=== PATIENT | male | born 1945 | race Caucasian/White ===

== ENCOUNTER → 2016-06-09 | Outpatient (CLI) | payer MEDICARE, BC ==
[2015-05-01 11:04] VITALS: BP 103/64
[~2016-06-09] MED LIST: ALBU2.5V5 NEB; ALPR0.5T PO; AMLO5TAB2 PO; ASPI-482 PO; CALC600T PO; CLOP75TA27 PO; CYAN100072 PO; CYCL10TA2 PO; DOCU-27 PO; FESO4TAB PO; FLUT12HF2 IH; FLUT16SP NS; FLUT1DIS3 IH; FURO20TA3 PO; GLIP5TAB10 PO; GUAI600T38 PO; HYDR25TA9 PO; IPRA4AER IH; KORE100C PO; LISI-334 PO; LISI20TA PO; LOVA40TA2 PO; MELO-156 PO; METF500T4 PO; MULT-208 PO; OMEG500C PO; OMEP40CA5 PO; OXYB15TA PO; OXYC-244 PO; Oxycodone Hcl/Acetaminophen PO; PRED20TA PO; Promethazine Hcl/Codeine PO; RANI150C PO; SOLI10TA PO; SOLI5TAB PO
--- NOTE | 2016-06-09 09:24 | RAD ---
Indication follow-up lung nodule. Noncontrast imaging through the chest was performed and is compared to an examination one year earlier. Imaging through the upper abdomen is unremarkable. Clips are noted in the gallbladder fossa. Coronary calcification is noted. The mediastinum has a normal appearance. Previously identified small nodule in the right upper lobe, image 143 series 3 appears unchanged. Similarly a nodule in the right lower lobe, image 194 is also unchanged. There is some pleural-parenchymal scarring or atelectasis in the lingula and left lower lobe with similar findings in the right middle lobe.. There is a 1 to 2 mm nodule at the left lung apex medially, image 26 also appearing similar. A definite acute parenchymal infiltrate in either lung or dominant soft tissue mass is not seen. Slight wedging of L2 is noted, unchanged. IMPRESSION: Stable, small, pulmonary nodules. A definite acute finding in the chest is not seen. Scattered new areas of volume loss are seen in the lungs likely reflecting scar and/or atelectasis. PQRS Compliance Statement: One or more of the following individualized dose reduction techniques were utilized for this examination: 1. Automated exposure control 2. Adjustment of the mA and/or kV according to patient size 3. Use of iterative reconstruction technique
== END | disposition home or self-care (01) ==
LOC: CT 08:29
PROVIDERS: ATTEND Internal Medicine Pulmonary Disease
DX: R91.1 Solitary pulmonary nodule (principal)
CPT/HCPCS: 71250

== ENCOUNTER 2016-07-22 14:30 | Inpatient (IN) | payer MEDICARE, BC ==
[2016-07-20 23:00] VITALS: BP 118/76
[~2016-07-22] VITALS: Ht 172.7 cm; Wt 77.1 kg
[2016-07-22 15:31] LABS: BASO % 0 % (0-3); EOS % 5 % (0-3); HEMOGLOBIN 10.1 g/dL (13.0-17.5); LYMPH % 14 % (24-48); MEAN CORPUSCULAR HEMOGLOBIN 31 pg (25-35); MEAN CORPUSCULAR HGB CONC 34 g/dL (31-37); MEAN CORPUSCULAR VOLUME 92 fL (79-100); MONO % 16 % (0-9); NEUT % 65 % (31-73); PLATELET COUNT 210 x10^3/uL (140-400); RED BLOOD COUNT 3.27 x10^6/uL (4.30-5.70); RED CELL DISTRIBUTION WIDTH 13.7 % (11.5-14.5)
--- NOTE | 2016-07-22 15:38 | EKG ---
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
[2016-07-22 15:54] LABS: CALCIUM 9.9 mg/dL (8.5-10.1); CREATININE 1.6 mg/dL (0.7-1.3); GFR 43.1; POTASSIUM 4.7 mmol/L (3.5-5.1)
[2016-07-22 16:00] LABS: ALBUMIN 2.8 g/dL (3.4-5.0); DIRECT BILIRUBIN 0.2 mg/dL (0.0-0.2)
[2016-07-22] MEDS ORDERED: HALOPERIDOL LACT 5 MG/ML VIAL. IM ONE (16:00)
[2016-07-22] MEDS ORDERED: NALOXONE 0.4 MG/ML VIAL. IV ONE (16:00)
[2016-07-22 16:23] LABS: TOTAL BILIRUBIN 0.7 mg/dL (0.2-1.0); TOTAL PROTEIN 6.6 g/dL (6.4-8.2)
--- NOTE | 2016-07-22 17:04 | PHYS DOC ---
Past Medical History Past Medical History: Anxiety, Arthritis, CAD, Cancer, Depression, Diabetes- Type II, GERD, High Cholesterol, Hypertension, Other Additional Past Medical Histor: prostate cancer, chronic pain Past Surgical History: Knee Replacement, Tonsillectomy, Other Additional Past Surgical Histo: back & shoulder surgery, prostatectomy, knee surgery x 2 Alcohol Use: Occasionally Drug Use: None Adult General Chief Complaint Chief Complaint: OTHER COMPLAINTS HPI HPI 70-year-old male presenting to the emergency department today after having worsening confusion over the past 2 days. He is also been agitated. He recently had bilateral knee replacement surgery and was placed in a correction facility for orthopedic rehabilitation and physical therapy. He has been on oxycodone and Ativan as needed for pain and sedation. He is oriented to person time and place however does have intermittent episodes of inappropriate conversation. His family is here with him including his . They confirmed that this is not his baseline. Onset 2 days. Location generalized. Duration intermittent. No alleviating factors present. Review of systems is negative for chest pain shortness of breath abdominal pain nausea vomiting fevers or chills. All other review of systems is negative unless otherwise noted in history of present illness. Review of Systems Review of Systems SEE ABOVE Current Medications Current Medications Current Medications Medications (Trade) Dose Ordered Sig/Oswaldo Start Time Stop Time Status Last Admin Dose Admin Acetaminophen (Tylenol) 650 mg PRN Q6HRS PRN 07/22/16 17:15 Bisacodyl (Dulcolax Supp) 10 mg PRN DAILY PRN 07/22/16 17:15 Haloperidol Lactate (Haldol) 2.5 mg 1X ONCE 07/22/16 16:00 07/22/16 16:01 DC Ibuprofen (Motrin) 400 mg PRN Q6HRS PRN 07/22/16 17:15 07/22/16 21:42 400 MG Ketorolac Tromethamine (Toradol) 15 mg PRN Q6HRS PRN 07/22/16 17:15 07/27/16 17:14 Lactulose 20 gm PRN Q12HR PRN 07/22/16 17:15 Magnesium Hydroxide (Milk Of Magnesia) 2,400 mg PRN Q12HR PRN 07/22/16 17:15 Morphine Sulfate 2 mg PRN Q2HR PRN 07/22/16 17:15 Naloxone HCl (Narcan) 0.4 mg 1X ONCE 07/22/16 16:00 07/22/16 16:01 DC 07/22/16 16:11 0.4 MG Ondansetron HCl (Zofran) 4 mg PRN Q6HRS PRN 07/22/16 17:15 Prochlorperazine (Compazine) 25 mg PRN Q12HR PRN 07/22/16 17:15 Prochlorperazine Edisylate (Compazine) 10 mg PRN Q6HRS PRN 07/22/16 17:15 Allergies Allergies Allergies Coded Allergies Type Severity Reaction Last Updated Verified No Known Drug Allergies 04/30/15 No Physical Exam Physical Exam Constitutional: Well developed, well nourished, no acute distress, non-toxic appearance. HENT: Normocephalic, atraumatic, bilateral external ears normal, oropharynx moist, no oral exudates, nose normal. [] Eyes: PERRLA, EOMI, conjunctiva normal, no discharge. Neck: Normal range of motion, no tenderness, supple, no stridor. [] Cardiovascular:Heart rate regular rhythm, no murmur [] Lungs & Thorax: Bilateral breath sounds clear to auscultation Abdomen: Bowel sounds normal, soft, no tenderness, no masses, no pulsatile masses. [] Skin: Warm, dry, no erythema, no rash. Back: No tenderness, no CVA tenderness. [] Extremities: The patient's legs show postoperative incisions which are closed clean dry and intact. Otherwise the patient is neurovascularly intact distally. Neurologic: Mental status: Awake oriented and alert x3. Intermittently the patient has inappropriate speech and conversation however is oriented to person place and time. Cranial nerves: Extraocular movements intact, eyebrows primo bilaterally smile symmetric, uvula elevation, shoulder shrug intact, tongue protrusion normal DTRs: 2+ Sensation: equal and normal in all extremities Strength: 5/5 in upper and lower extremities bilaterally No drift present. Psychologic: Affect normal, judgement normal, mood normal. [] Current Patient Data Vital Signs Vital Signs Date Time Temp Pulse Resp B/P Pulse Ox O2 Delivery O2 Flow Rate FiO2 07/22/16 16:30 98 20 104/54 96 Nasal Cannula 3 07/22/16 14:30 98.1 98.1 Lab Values Laboratory Tests Test 07/22/16 15:15 07/22/16 15:30 07/22/16 17:00 White Blood Count 7.0x10^3/uL (4.0-11.0) Red Blood Count 3.27x10^6/uL (4.30-5.70) L Hemoglobin 10.1g/dL (13.0-17.5) L Hematocrit 30.0% (39.0-53.0) L Mean Corpuscular Volume 92fL (79-100) Mean Corpuscular Hemoglobin 31pg (25-35) Mean Corpuscular Hemoglobin Concent 34g/dL (31-37) Red Cell Distribution Width 13.7% (11.5-14.5) Platelet Count 210x10^3/uL (140-400) Neutrophils (%) (Auto) 65% (31-73) Lymphocytes (%) (Auto) 14% (24-48) L Monocytes (%) (Auto) 16% (0-9) H Eosinophils (%) (Auto) 5% (0-3) H Basophils (%) (Auto) 0% (0-3) Neutrophils # (Auto) 4.6x10^3uL (1.8-7.7) Lymphocytes # (Auto) 1.0x10^3/uL (1.0-4.8) Monocytes # (Auto) 1.1x10^3/uL (0.0-1.1) Eosinophils # (Auto) 0.3x10^3/uL (0.0-0.7) Basophils # (Auto) 0.0x10^3/uL (0.0-0.2) Erythrocyte Sedimentation Rate 91 (0-15) H Sodium Level 139mmol/L (136-145) Potassium Level 4.7mmol/L (3.5-5.1) Chloride Level 102mmol/L (98-107) Carbon Dioxide Level 31mmol/L (21-32) Anion Gap 6 (6-14) Blood Urea Nitrogen 44mg/dL (8-26) H Creatinine 1.6mg/dL (0.7-1.3) H Estimated GFR (Cockcroft-Gault) 43.1 Glucose Level 237mg/dL (70-99) H Calcium Level 9.9mg/dL (8.5-10.1) Total Bilirubin 0.7mg/dL (0.2-1.0) Direct Bilirubin 0.2mg/dL (0.0-0.2) Aspartate Amino Transferase (AST) 27U/L (15-37) Alanine Aminotransferase (ALT) 41U/L (16-63) Alkaline Phosphatase 26U/L (46-116) L Troponin I Quantitative 0.031ng/mL (0.000-0.055) PQ-Hsl-J-Type Natriuretic Peptide 724pg/mL (0-124) H Total Protein 6.6g/dL (6.4-8.2) Albumin 2.8g/dL (3.4-5.0) L Lipase 78U/L (73-393) Lactic Acid Level 0.9mmol/L (0.4-2.0) Ammonia 33mcmol/L (11-34) Urine Collection Type Unknown Urine Color Yellow Urine Clarity Clear Urine pH 5.5 Urine Specific Raphine 1.015 Urine Protein Negativemg/dL (NEG-TRACE) Urine Glucose (UA) Negativemg/dL (NEG) Urine Ketones (Stick) Negativemg/dL (NEG) Urine Blood Negative (NEG) Urine Nitrite Negative (NEG) Urine Bilirubin Negative (NEG) Urine Urobilinogen Dipstick 1.0mg/dL (0.2 mg/dL) Urine Leukocyte Esterase Negative (NEG) Urine RBC Occ/HPF (0-2) Urine WBC 0/HPF (0-4) Urine Bacteria 0/HPF (0-FEW) Urine Hyaline Casts Moderate/HPF Urine Mucus Slight/LPF Laboratory Tests 07/22/16 15:15 Laboratory Tests 07/22/16 15:15 EKG EKG [] Radiology/Procedures Radiology/Procedures [] Course & Med Decision Making Course & Med Decision Making Pertinent Labs and Imaging studies reviewed. (See chart for details) [] 70-year-old male presenting to the emergency department with confusion after having bilateral knee replacement surgery at [facility]. Vital signs afebrile. Mild tachycardia. Otherwise saturating 94% on 3 L. Reports from longterm as this is the patient's baseline. Physical exam showed postoperative knee is without any acute evidence of complication. Otherwise nonfocal neuro exam. Workup shows EKG similar to previous with mild tachycardia. Small amount of Narcan given which did not improve the patient's symptoms. CBC shows mild anemia at 10. Chemistry panel shows mild hyperglycemia otherwise elevation and BUN/creatinine suggestive of dehydration. Troponin within the reference range of normal. Lactic acid normal. Ammonia normal. Given the patient's confusion postoperatively and age I felt it would benefit the patient for admission to our hospital for further evaluation workup and care. Head CT unremarkable. I placed consult for neurology and orthopedics to follow the knee replacements. I discussed the case with Dr. gustafson who agreed to follow the patient's postoperative knee issues. Dragon Disclaimer Dragon Disclaimer This electronic medical record was generated, in whole or in part, using a voice recognition dictation system. Departure Departure Impression: Primary Impression: Encephalopathy acute Additional Impressions: Confusion Delirium Disposition: ADMITTED INPATIENT Admitting Physician: Caitlin Cortez Condition: STABLE Referrals: JEFFREY VASQUEZ MD (PCP) Problem Qualifiers ALEJANDRA GUTIERREZ MD Jul 22, 2016 17:04
[2016-07-22 17:13] LABS: BILIRUBIN,URINE NEGATIVE (NEG); GLUCOSE,URINE NEGATIVE (NEG); NITRITE,URINE NEGATIVE (NEG); PH,URINE 5.5; PROTEIN,URINE NEGATIVE (NEG-TRACE)
[2016-07-22] MEDS ORDERED: PROCHLORPERAZINE 10 MG/2 ML VIAL. IV PRN (17:15)
[2016-07-22] MEDS ORDERED: MORPHINE SULFATE 2 MG/ML DISP.SYRIN. IV PRN (17:15)
[2016-07-22] MEDS ORDERED: MAGNESIUM HYDROXIDE 2,400 MG/30 ML ORAL.SUSP. PO PRN (17:15)
[2016-07-22] MEDS ORDERED: PROCHLORPERAZINE 25 MG SUPP.RECT. PR PRN (17:15)
[2016-07-22] MEDS ORDERED: KETOROLAC 15 MG/ML VIAL. IV PRN (17:15)
[2016-07-22] MEDS ORDERED: BISACODYL 10 MG SUPP.RECT PR PRN (17:15)
[2016-07-22] MEDS ORDERED: LACTULOSE 20 GM/30 ML SOLUTION. PO PRN (17:15)
[2016-07-22] MEDS ORDERED: ONDANSETRON PF 4 MG/2 ML VIAL. IV PRN (17:15)
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
[2016-07-22 17:19] LABS: RBC,URINE OCC /HPF (0-2)
[2016-07-22 17:20] LABS: BACTERIA,URINE 0 /HPF (0-FEW); WBC,URINE 0 /HPF (0-4)
[2016-07-22] MEDS ORDERED: HALOPERIDOL LACT 5 MG/ML VIAL. IVP PRN (17:30)
[2016-07-22] MEDS ORDERED: LABETALOL 20 MG/4 ML DISP.SYRIN. IVP PRN (17:30)
[2016-07-22] MEDS ORDERED: LORAZEPAM 2 MG/ML VIAL IV PRN (17:30)
--- NOTE | 2016-07-22 17:37 | RAD ---
PROCEDURE CT HEAD HISTORY CONFUSION AND COMBATIVE X4DAYS
NO HX
NO PRIORS TECHNIQUE AXIAL NONCONTRAST IMAGES THROUGH THE HEAD WERE OBTAINED COMPARISON NONE FINDINGS THE CALVARIUM APPEARS UNREMARKABLE. THE VISUALIZED PARANASAL SINUSES APPEAR NORMAL. THERE IS NO SUBDURAL OR EPIDURAL HEMATOMA. THERE IS NO MASS OR MIDLINE SHIFT. NO HEMORRHAGE IS SEEN. NO ACUTE FINDING IS APPARENT. IMPRESSION NO ACUTE FINDING APPARENT IN THE HEAD Electronically signed by: Hao Schultz (Jul 22, 2016 17:35:53)
[2016-07-22] MEDS ORDERED: IV NORMAL SALINE 1000ML BAG 1,000 ML IV SCH (18:00)
[2016-07-22 19:40] VITALS: BP 103/64
[2016-07-22] MEDS ORDERED: ENOXAPARIN 40 MG/0.4 ML DISP.SYRIN. SQ SCH (21:00)
[2016-07-22] MEDS: DOCUSATE SODIUM 100 MG CAPSULE PO SCH (21:00)
[2016-07-22] MEDS: SENNOSIDES/DOCUSATE 8.6/50MG TABLET. PO SCH (21:00)
--- NOTE | 2016-07-22 21:20 | PDOC ---
ORTHO PROGRESS NOTES Vitals Vital Signs Date Time Temp Pulse Resp B/P Pulse Ox O2 Delivery O2 Flow Rate FiO2 07/22/16 18:20 98 16 111/65 94 Nasal Cannula 3 07/22/16 14:30 98.1 98.1 Labs Laboratory Tests Test 07/22/16 15:15 07/22/16 15:30 07/22/16 17:00 White Blood Count 7.0x10^3/uL (4.0-11.0) Red Blood Count 3.27x10^6/uL (4.30-5.70) Hemoglobin 10.1g/dL (13.0-17.5) Hematocrit 30.0% (39.0-53.0) Mean Corpuscular Volume 92fL (79-100) Mean Corpuscular Hemoglobin 31pg (25-35) Mean Corpuscular Hemoglobin Concent 34g/dL (31-37) Red Cell Distribution Width 13.7% (11.5-14.5) Platelet Count 210x10^3/uL (140-400) Neutrophils (%) (Auto) 65% (31-73) Lymphocytes (%) (Auto) 14% (24-48) Monocytes (%) (Auto) 16% (0-9) Eosinophils (%) (Auto) 5% (0-3) Basophils (%) (Auto) 0% (0-3) Neutrophils # (Auto) 4.6x10^3uL (1.8-7.7) Lymphocytes # (Auto) 1.0x10^3/uL (1.0-4.8) Monocytes # (Auto) 1.1x10^3/uL (0.0-1.1) Eosinophils # (Auto) 0.3x10^3/uL (0.0-0.7) Basophils # (Auto) 0.0x10^3/uL (0.0-0.2) Erythrocyte Sedimentation Rate 91 (0-15) Sodium Level 139mmol/L (136-145) Potassium Level 4.7mmol/L (3.5-5.1) Chloride Level 102mmol/L (98-107) Carbon Dioxide Level 31mmol/L (21-32) Anion Gap 6 (6-14) Blood Urea Nitrogen 44mg/dL (8-26) Creatinine 1.6mg/dL (0.7-1.3) Estimated GFR (Cockcroft-Gault) 43.1 Glucose Level 237mg/dL (70-99) Calcium Level 9.9mg/dL (8.5-10.1) Total Bilirubin 0.7mg/dL (0.2-1.0) Direct Bilirubin 0.2mg/dL (0.0-0.2) Aspartate Amino Transf (AST/SGOT) 27U/L (15-37) Alanine Aminotransferase (ALT/SGPT) 41U/L (16-63) Alkaline Phosphatase 26U/L (46-116) Troponin I Quantitative 0.031ng/mL (0.000-0.055) RZ-Vov-G-Type Natriuretic Peptide 724pg/mL (0-124) Total Protein 6.6g/dL (6.4-8.2) Albumin 2.8g/dL (3.4-5.0) Lipase 78U/L (73-393) Lactic Acid Level 0.9mmol/L (0.4-2.0) Ammonia 33mcmol/L (11-34) Urine Collection Type Unknown Urine Color Yellow Urine Clarity Clear Urine pH 5.5 Urine Specific Tinnie 1.015 Urine Protein Negativemg/dL (NEG-TRACE) Urine Glucose (UA) Negativemg/dL (NEG) Urine Ketones (Stick) Negativemg/dL (NEG) Urine Blood Negative (NEG) Urine Nitrite Negative (NEG) Urine Bilirubin Negative (NEG) Urine Urobilinogen Dipstick 1.0mg/dL (0.2 mg/dL) Urine Leukocyte Esterase Negative (NEG) Urine RBC Occ/HPF (0-2) Urine WBC 0/HPF (0-4) Urine Bacteria 0/HPF (0-FEW) Urine Hyaline Casts Moderate/HPF Urine Mucus Slight/LPF Laboratory Tests Test 07/22/16 15:15 07/22/16 15:30 07/22/16 17:00 White Blood Count 7.0x10^3/uL (4.0-11.0) Red Blood Count 3.27x10^6/uL (4.30-5.70) Hemoglobin 10.1g/dL (13.0-17.5) Hematocrit 30.0% (39.0-53.0) Mean Corpuscular Volume 92fL (79-100) Mean Corpuscular Hemoglobin 31pg (25-35) Mean Corpuscular Hemoglobin Concent 34g/dL (31-37) Red Cell Distribution Width 13.7% (11.5-14.5) Platelet Count 210x10^3/uL (140-400) Neutrophils (%) (Auto) 65% (31-73) Lymphocytes (%) (Auto) 14% (24-48) Monocytes (%) (Auto) 16% (0-9) Eosinophils (%) (Auto) 5% (0-3) Basophils (%) (Auto) 0% (0-3) Neutrophils # (Auto) 4.6x10^3uL (1.8-7.7) Lymphocytes # (Auto) 1.0x10^3/uL (1.0-4.8) Monocytes # (Auto) 1.1x10^3/uL (0.0-1.1) Eosinophils # (Auto) 0.3x10^3/uL (0.0-0.7) Basophils # (Auto) 0.0x10^3/uL (0.0-0.2) Erythrocyte Sedimentation Rate 91 (0-15) Sodium Level 139mmol/L (136-145) Potassium Level 4.7mmol/L (3.5-5.1) Chloride Level 102mmol/L (98-107) Carbon Dioxide Level 31mmol/L (21-32) Anion Gap 6 (6-14) Blood Urea Nitrogen 44mg/dL (8-26) Creatinine 1.6mg/dL (0.7-1.3) Estimated GFR (Cockcroft-Gault) 43.1 Glucose Level 237mg/dL (70-99) Calcium Level 9.9mg/dL (8.5-10.1) Total Bilirubin 0.7mg/dL (0.2-1.0) Direct Bilirubin 0.2mg/dL (0.0-0.2) Aspartate Amino Transf (AST/SGOT) 27U/L (15-37) Alanine Aminotransferase (ALT/SGPT) 41U/L (16-63) Alkaline Phosphatase 26U/L (46-116) Troponin I Quantitative 0.031ng/mL (0.000-0.055) AQ-Vsg-X-Type Natriuretic Peptide 724pg/mL (0-124) Total Protein 6.6g/dL (6.4-8.2) Albumin 2.8g/dL (3.4-5.0) Lipase 78U/L (73-393) Lactic Acid Level 0.9mmol/L (0.4-2.0) Ammonia 33mcmol/L (11-34) Urine Collection Type Unknown Urine Color Yellow Urine Clarity Clear Urine pH 5.5 Urine Specific Tinnie 1.015 Urine Protein Negativemg/dL (NEG-TRACE) Urine Glucose (UA) Negativemg/dL (NEG) Urine Ketones (Stick) Negativemg/dL (NEG) Urine Blood Negative (NEG) Urine Nitrite Negative (NEG) Urine Bilirubin Negative (NEG) Urine Urobilinogen Dipstick 1.0mg/dL (0.2 mg/dL) Urine Leukocyte Esterase Negative (NEG) Urine RBC Occ/HPF (0-2) Urine WBC 0/HPF (0-4) Urine Bacteria 0/HPF (0-FEW) Urine Hyaline Casts Moderate/HPF Urine Mucus Slight/LPF Assessment and Plan note dictated normal appearing bilateral TKAs resume anticoag PT/OT Aquacel dressing over knees ANTONY OZUNA II, MD Jul 22, 2016 21:19
[2016-07-22] MEDS: IBUPROFEN 400 MG TABLET. PO PRN (21:42)
[2016-07-22] MEDS ORDERED: RANI150T2 PO (23:13)
[2016-07-22] MEDS ORDERED: CELE-20 PO (23:13)
[2016-07-22] MEDS ORDERED: VIT1TABL32 PO (23:13)
[2016-07-22] MEDS ORDERED: SIME180C16 PO (23:13)
[2016-07-22] MEDS ORDERED: LORA0.5T PO (23:13)
[2016-07-22] MEDS ORDERED: RIVA10TA PO (23:13)
[2016-07-22] MEDS ORDERED: POLY17PO5 PO (23:13)
[2016-07-22] MEDS ORDERED: METO10TA PO (23:13)
[2016-07-22] MEDS ORDERED: POTA20TA82 PO (23:13)
[2016-07-22] MEDS ORDERED: QUET25TA PO (23:13)
[2016-07-22] MEDS ORDERED: LORA1TAB PO (23:13)
[2016-07-22] MEDS ORDERED: LIDO700A4 TP (23:13)
[2016-07-22] MEDS ORDERED: OXYC1TAB7 PO (23:13)
[2016-07-22] MEDS ORDERED: BIFI4CAP PO (23:13)
--- NOTE | 2016-07-23 02:04 | ACF ---
Admission Forms Criteria MENTAL STATUS CHANGE Clinical Indications for Inpatient Care (Place 'X' for any and all applicable criteria): Ongoing inpatient care may be needed for ANY ONE of the following(1)(2)(3)(5)(6) : [X]I. Suspected serious etiology (eg, medical disorder, MEDICAL ASSISTANT DERMATOLOGY event) of mental status change [ ]II. Danger to self or others not manageable at lower level of care [ ]III. Grave disability (eg, inability to perform self care necessary at lower level of care) [ ]IV. Agitation or inappropriate behavior interfering with care for primary condition (eg, attempting to discontinue lines or drains prematurely, unable to cooperate with respiratory care) [ ]V. Delirium [A] [D][E] as described by ANY ONE of the following(26): [ ]a) Delirium due to alcohol or sedative [F] withdrawal [ ]b) Delirium of uncertain etiology that has not responded to appropriate empiric treatment [ ]c) Delirium that prevents performance of a life-sustaining function (eg, feeding or hydrating oneself) [ ]. General contraindications and/or Inappropriate clinical situations for Observational Care in patients with Mental Status Change, when ANY ONE of the following is required: [ ]a) Prediction of prolongation of LOS based on ANY ONE of the following may be considered as a contraindication for observational care 2, 3, 4, 5, 6, 7, 8, 9, 10, 11 [ ]i) Age > 65 yrs. [ ]ii) Patient arriving by ambulance [ ]iii) Patient with high acuity [ ]iv) Patient requiring vital sign monitoring [ ]v) Patient on IV medication [ ]b) Systolic blood pressures 180mmHg 3,12 [ ]c) Patient with altered mental status including delirium and other alteration of consciousness, (3) [ ]d) Patient whose discharge disposition will be to a [facility]cf home or rehabilitation home should not be managed in Emergency Department Observation Unit. CMS rule requires 3 days hospital stay before such placement.3,13 [ ]e) Patient with failure to thrive due to broad array of etiologies 3,16,17 [ ]f) Inability to ambulate 3,14 Extended stay beyond goal length of stay for the primary condition may be needed until ALL of the following are present(3)(5): [ ]a) Underlying medical etiology of mental status change is absent, or has been established and adequately treated [ ]b) Danger to self or others is absent or manageable at lower level of care. [ ]c) Behavior crisis management, including physical or chemical restraints, is not required or available at lower level of car [ ]d) Substance or alcohol withdrawal is absent or manageable at lower level of care. [ ]e) Behavioral symptoms (eg, agitation, somnolence, inappropriate behavior) are absent, or are manageable at lower level of care. The original [facility] content created by [facility] has been revised. The portions of the content which have been revised are identified through the use of italic text or in bold, and [facility] has neither reviewed nor approved the modified material. All other unmodified content is copyright [facility]. Please see references footnoted in the original [facility] edition 2016 Admission Criteria Met?: Yes DIOGO RONQUILLO Jul 23, 2016 02:04
[2016-07-23] MEDS: IBUPROFEN 400 MG TABLET. PO PRN ×2 (02:39→20:39)
[2016-07-23] MEDS ORDERED: HALOPERIDOL LACT 5 MG/ML VIAL. IM PRN (04:15)
[2016-07-23] MEDS ORDERED: ZIPRASIDONE IM 20 MG VIAL. IM ONE ×2 (04:30→05:00)
[2016-07-23 06:03] LABS: BASO % 0 % (0-3); EOS % 3 % (0-3); HEMATOCRIT 31.2 % (39.0-53.0); HEMOGLOBIN 10.8 g/dL (13.0-17.5); LYMPH # 0.8 x10^3/uL (1.0-4.8); LYMPH % 10 % (24-48); MEAN CORPUSCULAR HEMOGLOBIN 31 pg (25-35); MEAN CORPUSCULAR HGB CONC 35 g/dL (31-37); MEAN CORPUSCULAR VOLUME 90 fL (79-100); MONO % 15 % (0-9); NEUT % 72 % (31-73); PLATELET COUNT 243 x10^3/uL (140-400); RED BLOOD COUNT 3.47 x10^6/uL (4.30-5.70); RED CELL DISTRIBUTION WIDTH 13.7 % (11.5-14.5); WHITE BLOOD COUNT 7.7 x10^3/uL (4.0-11.0)
[2016-07-23 06:40] LABS: CALCIUM 9.6 mg/dL (8.5-10.1); CREATININE 1.2 mg/dL (0.7-1.3); POTASSIUM 4.4 mmol/L (3.5-5.1)
[2016-07-23 07:00] VITALS: BP 104/51
[2016-07-23] MEDS: NICOTINE 21MG PATCH. TD SCH (07:27)
[2016-07-23] MEDS: RIVAROXABAN 10 MG TABLET. PO SCH ×2 (09:00→14:28)
[2016-07-23] MEDS: DOCUSATE SODIUM 100 MG CAPSULE PO SCH ×2 (09:37→20:32)
[2016-07-23] MEDS: SENNOSIDES/DOCUSATE 8.6/50MG TABLET. PO SCH ×2 (09:37→20:32)
--- NOTE | 2016-07-23 10:32 | RAD ---
Examination: Single frontal view of the chest History: History of confusion, recent surgery Comparison: 08/19/2014 Findings: Low lung volumes and technique accentuates heart size and pulmonary vascularity. Mild bibasal lung airspace opacity likely atelectasis or infiltrates. Impression: Mild bibasal lung airspace opacities likely atelectasis or infiltrates. Follow-up to resolution.
[2016-07-23] MEDS: ACETAMINOPHEN 325 MG TABLET. PO PRN ×2 (10:48→16:45)
[2016-07-23 11:00] VITALS: BP 120/52
--- NOTE | 2016-07-23 11:09 | CONS ---
DATE OF CONSULTATION: 07/22/2016 REFERRING PROVIDER: Dr. Cortez. CONSULTING PROVIDER: Negrito Ozuna MD REASON FOR CONSULTATION: Bilateral total knee arthroplasty. CHIEF COMPLAINT: Knee pain. HISTORY OF PRESENT ILLNESS: The patient is a 70-year-old gentleman, who was sent over for confusion and altered mental status [facility] [place] [facility]. He underwent surgery 5 days ago, bilateral total knee arthroplasties, and has been increasingly confused the past day or so. He tells me that his knees are quite sore, but the pain is tolerable. He denies noticing any persistent drainage from his knees. The pain does go down his legs. It is worse with activity. He denies fevers. ALLERGIES: None. REVIEW OF SYSTEMS: Twelve-point review of systems negative except as per HPI. PAST MEDICAL HISTORY: Significant for: 1. Bilateral total knee arthroplasty. 2. Type 2 diabetes. 3. COPD. 4. Depression. 5. Anxiety. 6. GERD. MEDICATIONS: Reviewed. Please see MRAD. SOCIAL HISTORY: Lives with his . No smoking. PHYSICAL EXAMINATION: GENERAL: The patient is alert to person, place and year. He does not know the date. He is drowsy. HEENT: Head normocephalic, atraumatic. Extraocular muscles are intact. CARDIOVASCULAR: Regular rate and rhythm. Dorsalis pedis 2+ and symmetric. No edema at his ankles. LUNGS: Respirations are unlabored with symmetric chest rise. ABDOMEN: Soft, nondistended. EXTREMITIES: Examination of bilateral lower extremities reveals EHL and FHL are 5/5. He has ecchymosis on bilateral posterior thighs and some around his anterior knees. He has mild knee effusions. He has healing anterior midline skin incisions at bilateral knees with surgical site markings still intact. There is no drainage. He is tender globally around his knees. IMPRESSION: 1. Altered mental status and confusion. 2. Bilateral total knee arthroplasties recently. PLAN: I would recommend that he continue his physical therapy while inpatient as well as occupational therapy. He has been on Xarelto and that can be continued while he is here. He should receive some DVT prophylaxis. From my standpoint, no interventions are warranted for his knees. These appear to be normally healing total knee arthroplasties. We will follow along with this gentleman. Thank you for consultation. NEGRITO OZUNA MD DR: Chaka JOB#: [id number] / [id number] ADELFO
--- NOTE | 2016-07-23 11:40 | PDOC ---
PROGRESS NOTES Chief Complaint Chief Complaint 1. Acute metabolic encephalopathy likely medication induced 2. Polypharmacy - on 40 meds (med list reviewed) 3. Recent bilateral Knee sx ([facility]) - family denies delirium, perioperatively 4, Obesity 5. MIld to mod PCM GERD, hypertension, asthma/COPD, previous smoker, and overactive bladder. 6. FOREIGN, vasomotor History of Present Illness History of Present Illness Code jose called last night Multiple calls overnight for agitation Pulled IV line, now NO IV access NEeded to give haldol and geodon IM last night NOw awake, sitter at bedside Seems calm today Knows he is in the hospital but not the name Wants to be dcd- called his 3x now PLAN: Either back to [facility] or [facility] - on case If able to take him back to [facility], im ok dcing NEuro consulted - not seen Ok to have reg diet Pt?OT when cooperative Ff up [facility] in 3 weeks for his bilateral TKA Cont sitter for now Ok to keep IV out Vitals Vitals Vital Signs Date Time Temp Pulse Resp B/P Pulse Ox O2 Delivery O2 Flow Rate FiO2 07/23/16 11:00 98.6 104 20 120/52 92 Nasal Cannula 3.0 98.6 Physical Exam General: Other (angry, combative) Lungs: Clear Abdomen: Normal bowel sounds, Soft, No tenderness, No hepatosplenomegaly, No masses Extremities: No clubbing Skin: No rashes, No breakdown, No significant lesion Labs LABS Laboratory Tests Test 07/22/16 15:15 07/22/16 15:30 07/22/16 17:00 07/23/16 05:40 White Blood Count 7.0x10^3/uL (4.0-11.0) 7.7x10^3/uL (4.0-11.0) Red Blood Count 3.27x10^6/uL (4.30-5.70) 3.47x10^6/uL (4.30-5.70) Hemoglobin 10.1g/dL (13.0-17.5) 10.8g/dL (13.0-17.5) Hematocrit 30.0% (39.0-53.0) 31.2% (39.0-53.0) Mean Corpuscular Volume 92fL (79-100) 90fL (79-100) Mean Corpuscular Hemoglobin 31pg (25-35) 31pg (25-35) Mean Corpuscular Hemoglobin Concent 34g/dL (31-37) 35g/dL (31-37) Red Cell Distribution Width 13.7% (11.5-14.5) 13.7% (11.5-14.5) Platelet Count 210x10^3/uL (140-400) 243x10^3/uL (140-400) Neutrophils (%) (Auto) 65% (31-73) 72% (31-73) Lymphocytes (%) (Auto) 14% (24-48) 10% (24-48) Monocytes (%) (Auto) 16% (0-9) 15% (0-9) Eosinophils (%) (Auto) 5% (0-3) 3% (0-3) Basophils (%) (Auto) 0% (0-3) 0% (0-3) Neutrophils # (Auto) 4.6x10^3uL (1.8-7.7) 5.6x10^3uL (1.8-7.7) Lymphocytes # (Auto) 1.0x10^3/uL (1.0-4.8) 0.8x10^3/uL (1.0-4.8) Monocytes # (Auto) 1.1x10^3/uL (0.0-1.1) 1.1x10^3/uL (0.0-1.1) Eosinophils # (Auto) 0.3x10^3/uL (0.0-0.7) 0.2x10^3/uL (0.0-0.7) Basophils # (Auto) 0.0x10^3/uL (0.0-0.2) 0.0x10^3/uL (0.0-0.2) Erythrocyte Sedimentation Rate 91 (0-15) Sodium Level 139mmol/L (136-145) 143mmol/L (136-145) Potassium Level 4.7mmol/L (3.5-5.1) 4.4mmol/L (3.5-5.1) Chloride Level 102mmol/L (98-107) 102mmol/L (98-107) Carbon Dioxide Level 31mmol/L (21-32) 31mmol/L (21-32) Anion Gap 6 (6-14) 10 (6-14) Blood Urea Nitrogen 44mg/dL (8-26) 36mg/dL (8-26) Creatinine 1.6mg/dL (0.7-1.3) 1.2mg/dL (0.7-1.3) Estimated GFR (Cockcroft-Gault) 43.1 60.0 Glucose Level 237mg/dL (70-99) 207mg/dL (70-99) Calcium Level 9.9mg/dL (8.5-10.1) 9.6mg/dL (8.5-10.1) Total Bilirubin 0.7mg/dL (0.2-1.0) Direct Bilirubin 0.2mg/dL (0.0-0.2) Aspartate Amino Transf (AST/SGOT) 27U/L (15-37) Alanine Aminotransferase (ALT/SGPT) 41U/L (16-63) Alkaline Phosphatase 26U/L (46-116) Troponin I Quantitative 0.031ng/mL (0.000-0.055) IH-Cel-P-Type Natriuretic Peptide 724pg/mL (0-124) Total Protein 6.6g/dL (6.4-8.2) Albumin 2.8g/dL (3.4-5.0) Lipase 78U/L (73-393) Lactic Acid Level 0.9mmol/L (0.4-2.0) Ammonia 33mcmol/L (11-34) Urine Collection Type Unknown Urine Color Yellow Urine Clarity Clear Urine pH 5.5 Urine Specific [place] 1.015 Urine Protein Negativemg/dL (NEG-TRACE) Urine Glucose (UA) Negativemg/dL (NEG) Urine Ketones (Stick) Negativemg/dL (NEG) Urine Blood Negative (NEG) Urine Nitrite Negative (NEG) Urine Bilirubin Negative (NEG) Urine Urobilinogen Dipstick 1.0mg/dL (0.2 mg/dL) Urine Leukocyte Esterase Negative (NEG) Urine RBC Occ/HPF (0-2) Urine WBC 0/HPF (0-4) Urine Bacteria 0/HPF (0-FEW) Urine Hyaline Casts Moderate/HPF Urine Mucus Slight/LPF Review of Systems Review of Systems cant fully obtain, agitation Assessment and Plan Assessmemt and Plan Problems Medical Problems: (1) Confusion Status: Acute (2) Delirium Status: Acute (3) Encephalopathy acute Status: Acute (4) Metabolic encephalopathy Status: Acute Problems: Comment Review of Relevant I have reviewed the following items elvis (where applicable) has been applied. Labs Laboratory Tests Test 07/22/16 15:15 07/22/16 15:30 07/22/16 17:00 07/23/16 05:40 White Blood Count 7.0x10^3/uL (4.0-11.0) 7.7x10^3/uL (4.0-11.0) Red Blood Count 3.27x10^6/uL (4.30-5.70) 3.47x10^6/uL (4.30-5.70) Hemoglobin 10.1g/dL (13.0-17.5) 10.8g/dL (13.0-17.5) Hematocrit 30.0% (39.0-53.0) 31.2% (39.0-53.0) Mean Corpuscular Volume 92fL (79-100) 90fL (79-100) Mean Corpuscular Hemoglobin 31pg (25-35) 31pg (25-35) Mean Corpuscular Hemoglobin Concent 34g/dL (31-37) 35g/dL (31-37) Red Cell Distribution Width 13.7% (11.5-14.5) 13.7% (11.5-14.5) Platelet Count 210x10^3/uL (140-400) 243x10^3/uL (140-400) Neutrophils (%) (Auto) 65% (31-73) 72% (31-73) Lymphocytes (%) (Auto) 14% (24-48) 10% (24-48) Monocytes (%) (Auto) 16% (0-9) 15% (0-9) Eosinophils (%) (Auto) 5% (0-3) 3% (0-3) Basophils (%) (Auto) 0% (0-3) 0% (0-3) Neutrophils # (Auto) 4.6x10^3uL (1.8-7.7) 5.6x10^3uL (1.8-7.7) Lymphocytes # (Auto) 1.0x10^3/uL (1.0-4.8) 0.8x10^3/uL (1.0-4.8) Monocytes # (Auto) 1.1x10^3/uL (0.0-1.1) 1.1x10^3/uL (0.0-1.1) Eosinophils # (Auto) 0.3x10^3/uL (0.0-0.7) 0.2x10^3/uL (0.0-0.7) Basophils # (Auto) 0.0x10^3/uL (0.0-0.2) 0.0x10^3/uL (0.0-0.2) Erythrocyte Sedimentation Rate 91 (0-15) Sodium Level 139mmol/L (136-145) 143mmol/L (136-145) Potassium Level 4.7mmol/L (3.5-5.1) 4.4mmol/L (3.5-5.1) Chloride Level 102mmol/L (98-107) 102mmol/L (98-107) Carbon Dioxide Level 31mmol/L (21-32) 31mmol/L (21-32) Anion Gap 6 (6-14) 10 (6-14) Blood Urea Nitrogen 44mg/dL (8-26) 36mg/dL (8-26) Creatinine 1.6mg/dL (0.7-1.3) 1.2mg/dL (0.7-1.3) Estimated GFR (Cockcroft-Gault) 43.1 60.0 Glucose Level 237mg/dL (70-99) 207mg/dL (70-99) Calcium Level 9.9mg/dL (8.5-10.1) 9.6mg/dL (8.5-10.1) Total Bilirubin 0.7mg/dL (0.2-1.0) Direct Bilirubin 0.2mg/dL (0.0-0.2) Aspartate Amino Transf (AST/SGOT) 27U/L (15-37) Alanine Aminotransferase (ALT/SGPT) 41U/L (16-63) Alkaline Phosphatase 26U/L (46-116) Troponin I Quantitative 0.031ng/mL (0.000-0.055) II-Ptk-A-Type Natriuretic Peptide 724pg/mL (0-124) Total Protein 6.6g/dL (6.4-8.2) Albumin 2.8g/dL (3.4-5.0) Lipase 78U/L (73-393) Lactic Acid Level 0.9mmol/L (0.4-2.0) Ammonia 33mcmol/L (11-34) Urine Collection Type Unknown Urine Color Yellow Urine Clarity Clear Urine pH 5.5 Urine Specific [place] 1.015 Urine Protein Negativemg/dL (NEG-TRACE) Urine Glucose (UA) Negativemg/dL (NEG) Urine Ketones (Stick) Negativemg/dL (NEG) Urine Blood Negative (NEG) Urine Nitrite Negative (NEG) Urine Bilirubin Negative (NEG) Urine Urobilinogen Dipstick 1.0mg/dL (0.2 mg/dL) Urine Leukocyte Esterase Negative (NEG) Urine RBC Occ/HPF (0-2) Urine WBC 0/HPF (0-4) Urine Bacteria 0/HPF (0-FEW) Urine Hyaline Casts Moderate/HPF Urine Mucus Slight/LPF Laboratory Tests Test 07/22/16 15:15 07/22/16 15:30 07/22/16 17:00 07/23/16 05:40 White Blood Count 7.0x10^3/uL (4.0-11.0) 7.7x10^3/uL (4.0-11.0) Red Blood Count 3.27x10^6/uL (4.30-5.70) 3.47x10^6/uL (4.30-5.70) Hemoglobin 10.1g/dL (13.0-17.5) 10.8g/dL (13.0-17.5) Hematocrit 30.0% (39.0-53.0) 31.2% (39.0-53.0) Mean Corpuscular Volume 92fL (79-100) 90fL (79-100) Mean Corpuscular Hemoglobin 31pg (25-35) 31pg (25-35) Mean Corpuscular Hemoglobin Concent 34g/dL (31-37) 35g/dL (31-37) Red Cell Distribution Width 13.7% (11.5-14.5) 13.7% (11.5-14.5) Platelet Count 210x10^3/uL (140-400) 243x10^3/uL (140-400) Neutrophils (%) (Auto) 65% (31-73) 72% (31-73) Lymphocytes (%) (Auto) 14% (24-48) 10% (24-48) Monocytes (%) (Auto) 16% (0-9) 15% (0-9) Eosinophils (%) (Auto) 5% (0-3) 3% (0-3) Basophils (%) (Auto) 0% (0-3) 0% (0-3) Neutrophils # (Auto) 4.6x10^3uL (1.8-7.7) 5.6x10^3uL (1.8-7.7) Lymphocytes # (Auto) 1.0x10^3/uL (1.0-4.8) 0.8x10^3/uL (1.0-4.8) Monocytes # (Auto) 1.1x10^3/uL (0.0-1.1) 1.1x10^3/uL (0.0-1.1) Eosinophils # (Auto) 0.3x10^3/uL (0.0-0.7) 0.2x10^3/uL (0.0-0.7) Basophils # (Auto) 0.0x10^3/uL (0.0-0.2) 0.0x10^3/uL (0.0-0.2) Erythrocyte Sedimentation Rate 91 (0-15) Sodium Level 139mmol/L (136-145) 143mmol/L (136-145) Potassium Level 4.7mmol/L (3.5-5.1) 4.4mmol/L (3.5-5.1) Chloride Level 102mmol/L (98-107) 102mmol/L (98-107) Carbon Dioxide Level 31mmol/L (21-32) 31mmol/L (21-32) Anion Gap 6 (6-14) 10 (6-14) Blood Urea Nitrogen 44mg/dL (8-26) 36mg/dL (8-26) Creatinine 1.6mg/dL (0.7-1.3) 1.2mg/dL (0.7-1.3) Estimated GFR (Cockcroft-Gault) 43.1 60.0 Glucose Level 237mg/dL (70-99) 207mg/dL (70-99) Calcium Level 9.9mg/dL (8.5-10.1) 9.6mg/dL (8.5-10.1) Total Bilirubin 0.7mg/dL (0.2-1.0) Direct Bilirubin 0.2mg/dL (0.0-0.2) Aspartate Amino Transf (AST/SGOT) 27U/L (15-37) Alanine Aminotransferase (ALT/SGPT) 41U/L (16-63) Alkaline Phosphatase 26U/L (46-116) Troponin I Quantitative 0.031ng/mL (0.000-0.055) QH-Eub-A-Type Natriuretic Peptide 724pg/mL (0-124) Total Protein 6.6g/dL (6.4-8.2) Albumin 2.8g/dL (3.4-5.0) Lipase 78U/L (73-393) Lactic Acid Level 0.9mmol/L (0.4-2.0) Ammonia 33mcmol/L (11-34) Urine Collection Type Unknown Urine Color Yellow Urine Clarity Clear Urine pH 5.5 Urine Specific [place] 1.015 Urine Protein Negativemg/dL (NEG-TRACE) Urine Glucose (UA) Negativemg/dL (NEG) Urine Ketones (Stick) Negativemg/dL (NEG) Urine Blood Negative (NEG) Urine Nitrite Negative (NEG) Urine Bilirubin Negative (NEG) Urine Urobilinogen Dipstick 1.0mg/dL (0.2 mg/dL) Urine Leukocyte Esterase Negative (NEG) Urine RBC Occ/HPF (0-2) Urine WBC 0/HPF (0-4) Urine Bacteria 0/HPF (0-FEW) Urine Hyaline Casts Moderate/HPF Urine Mucus Slight/LPF Medications Current Medications Haloperidol Lactate (Haldol) 2.5 mg 1X ONCE IM Last administered on 07/23/16t 03:27; Start 07/22/16 at 16:00; Stop 07/22/16 at 16:01; Status DC Naloxone HCl 0.4 mg 0.4 mg 1X ONCE IV Last administered on 07/22/16 16:11; Start 07/22/16 at 16:00; Stop 07/22/16 at 16:01; Status DC Sodium Chloride (Iv Sodium Chloride 0.9% 1000ml Bag) 1,000 ml @ 100 mls/hr Q10H IV ; Start 07/22/16 at 18:00; Stop 07/23/16 at 03:59; Status DC Ondansetron HCl (Zofran) 4 mg PRN Q6HRS PRN IV NAUSEA/VOMITING; Start 07/22/16 at 17:15 Prochlorperazine Edisylate (Compazine) 10 mg PRN Q6HRS PRN IV NAUSEA/VOMITING; Start 07/22/16 at 17:15 Prochlorperazine (Compazine) 25 mg PRN Q12HR PRN OR NAUSEA/VOMITING; Start 07/22 at 17:15 Morphine Sulfate 2 mg PRN Q2HR PRN IV PAIN; Start 07/22/16 at 17:15 Ketorolac Tromethamine (Toradol) 15 mg PRN Q6HRS PRN IV PAIN; Start 07/22/16 at 17:15; Stop 07/27/16 at 17:14 Acetaminophen (Tylenol) 650 mg PRN Q6HRS PRN PO Headaches, Temp > 101.5F Last administered on 07/23/16 10:48; Start 07/22/16 at 17:15 Ibuprofen (Motrin) 400 mg PRN Q6HRS PRN PO MILD PAIN Last administered on 21:42; Start 07/22/16 at 17:15 Senna/Docusate Sodium (Senna Plus) 1 tab BID PO Last administered on 07/23/16 09:37; Start 07/22/16 at 21:00 Docusate Sodium (Colace) 100 mg BID PO Last administered on 07/23/16 09:37; Start 07/22/16 at 21:00 Magnesium Hydroxide (Milk Of Magnesia) 2,400 mg PRN Q12HR PRN PO CONSTIPATION; Start 07/22/16 at 17:15 Lactulose 20 gm PRN Q12HR PRN PO CONSTIPATION; Start 07/22/16 at 17:15 Bisacodyl (Dulcolax Supp) 10 mg PRN DAILY PRN OR CONSTIPATION; Start 07/22/16 at 17:15 Enoxaparin Sodium (Lovenox 40mg Syringe) 40 mg Q24H SQ ; Start 07/22/16 at 21:00 ; Stop 07/23/16 at 11:30; Status DC Haloperidol Lactate (Haldol) 5 mg PRN Q6HRS PRN IVP agitation Last administered on 07/22/16 20:58; Start 07/22/16 at 17:30; Stop 07/23/16 at 04:07; Status DC Labetalol HCl (Normodyne) 10 mg PRN Q2HR PRN IVP BP>160/100; Start 07/22/16 at 17:30 Lorazepam (Ativan) 2 mg PRN Q4HRS PRN IV ANXIETY / AGITATION; Start 07/22/16 at 17:30 Rivaroxaban (Xarelto) 10 mg DAILY PO ; Start 07/23/16 at 09:00 Haloperidol Lactate (Haldol) 5 mg PRN Q6HRS PRN IM agitation; Start 07/23/16 at 04:15 Ziprasidone (Geodon Im) 2.5 mg 1X ONCE IM ; Start 07/23/16 at 04:30; Stop at 04:30; Status DC Ziprasidone (Geodon Im) 5 mg 1X ONCE IM Last administered on 07/23/16 04:36; Start 07/23/16 at 05:00; Stop 07/23/16 at 05:01; Status DC Nicotine (Nicoderm Cq 21mg) 1 patch DAILY TD Last administered on 07/23/16 07: 27; Start 07/23/16 at 07:30 Active Scripts Active [Oxycodone Hcl/Acetaminophen] 1 TAB Tablet 2 Tab PO PRN Q6HRS PRN [Oxycodone Hcl/Acetaminophen] 1 TAB Tablet 1 Tab PO PRN Q6HRS PRN Colace (Docusate Sodium) 100 Mg Capsule 100 Mg PO BID Cyclobenzaprine Hcl 10 Mg Tablet 10 Mg PO PRN TID PRN Mucinex (Guaifenesin) 600 Mg Tablet.er 600 Mg PO BID 14 Days Reported Metoclopramide Hcl 10 Mg Tablet 10 Mg PO QIDACHS Celecoxib 200 Mg Capsule 200 Mg PO BID Miralax (Polyethylene Glycol 3350) 17 Gm Powd.pack 1 Packet PO DAILY Potassium Chloride 20 Meq Tablet.er 20 Meq PO DAILY Ranitidine Hcl 150 Mg Tablet 150 Mg PO DAILY Ocuvite Tablet (Vit A,C & E/Lutein/Minerals) 1 Each Tablet 1 Each PO DAILY Align (Bifidobacterium Infantis) 4 Mg Capsule 4 Mg PO DAILY Xarelto (Rivaroxaban) 10 Mg Tablet 1 Tab PO DAILY Simethicone 180 Mg Capsule 180 Mg PO DAILY Lorazepam 1 Mg Tablet 1 Tab PO PRN Q2HR PRN Quetiapine Fumarate 25 Mg Tablet 25 Mg PO HS Lorazepam 0.5 Mg Tablet 1 Tab PO PRN Q2HR PRN Oxycodone-Acetaminophen 5-325 (Oxycodone Hcl/Acetaminophen) 1 Each Tablet 1-2 Each PO PRN Q4HRS PRN Lidoderm (Lidocaine) 700 Mg Adh..patch 2 Patch TP DAILY Glipizide 5 Mg Tablet 1 Tab PO BID LAST DOSE GIVEN: DATE:05-01-15 TIME:8:30 a.m. NEXT DOSE DUE: DATE:05-01-15 TIME:5:00 p.m. Hydrochlorothiazide Tablet (Hydrochlorothiazide) 25 Mg Tablet 1 Tab PO DAILY Not taken while in hosp. due to low blood pressure. Check blood pressure before taking if systolic blood pressure below 110 do not take. Vesicare (Solifenacin Succinate) 10 Mg Tablet 1 Tab PO DAILY LAST DOSE GIVEN: DATE:05-01-15 TIME:8:30 a.m. NEXT DOSE DUE: DATE:05-02-15 TIME:8:30 a.m. Amlodipine Besylate 5 Mg Tablet 10 Mg PO DAILY Not given while in hosp. due to low blood pressure. May resume at home as directed. Check blood pressure first if below 110 systolic do not take. Lisinopril 20 Mg Tablet 2 Tab PO DAILY Not taken in hosp. due to low blood pressure. Evelyn resume at home as directed but check blood pressure first. If systolic below 110 do not take. Combivent Respimat Inhal (Ipratropium/Albuterol Sulfate) 4 Gm Aer.w.adap 1 Inh IH QID Not taken while in hosp. May resume at home as needed as directed. Caltrate 600 (Calcium Carbonate) 600 Mg Tablet 600 Mg PO Not taken while in hosp. May resume at home as directed. B-12 (Cyanocobalamin (Vitamin B-12)) 1,000 Mcg Tablet 2,000 Mcg PO Not taken while in hosp. May resume at home as directed Multi-Day Vitamins (Multivitamin) 1 Each Tablet 1 Tab PO DAILY Not taken while in hosp. May resume at home as directed Fish Oil ([place]-3 Fatty Acids) 500 Mg Capsule. 500 Mg PO Not taken while in hsop. May resume at home as directed Aspir 81 (Aspirin) 81 Mg Tablet. 1 Tab PO DAILY LAST DOSE GIVEN: DATE:05-01-15 TIME:8:30 a.m. NEXT DOSE DUE: DATE:05-02-15 TIME:8:30 a.m. Furosemide 20 Mg Tablet 1 Tab PO DAILY Not taken while in hosp. May resume at home as directed. Check blood pressure before taking if 110 or below systolic do not take. Plavix (Clopidogrel Bisulfate) 75 Mg Tablet 1 Tab PO DAILY Not taken while in hosp. May resume at home as directed Omeprazole 40 Mg Capsule. 1 Cap PO DAILY LAST DOSE GIVEN: DATE:05-01-15 TIME:7:30 a.m. NEXT DOSE DUE: DATE:05-02-15 TIME:7:30 a.m. Lovastatin 40 Mg Tablet 1 Tab PO HS LAST DOSE GIVEN: DATE:04-30-15 TIME:9:00 p.m. NEXT DOSE DUE: DATE:05-01-15 TIME:9:00 p.m. Vitals/I & O Vital Sign - Last 24 Hours 07/22/16 07/22/16 07/22/16 07/22/16 14:30 15:00 15:43 16:30 Temp 98.1 98.1 Pulse 100 100 98 98 Resp 19 16 20 B/P 110/56 98/50 109/62 104/54 Pulse Ox 94 96 98 96 O2 Delivery Nasal Cannula Nasal Cannula Nasal Cannula Nasal Cannula O2 Flow Rate 3 3 3 3 07/22/16 07/22/16 07/22/16 07/22/16 17:30 18:20 19:40 22:36 Temp 98.9 98.9 Pulse 94 98 93 Resp 21 16 20 B/P 117/58 111/65 103/64 Pulse Ox 96 94 92 O2 Delivery Nasal Cannula Nasal Cannula Room Air O2 Flow Rate 3 3 07/23/16 07/23/16 07/23/16 07:00 08:00 11:00 Temp 98.4 98.6 98.4 98.6 Pulse 120 104 Resp 20 20 B/P 104/51 120/52 Pulse Ox 84 92 O2 Delivery Room Air Nasal Cannula Nasal Cannula O2 Flow Rate 3.0 3.0 Intake and Output 07/22/16 07/22/16 07/23/16 15:00 23:00 07:00 Intake Total 0 ml Output Total 850 ml Balance -850 ml CHU HUMMEL MD Jul 23, 2016 11:40
[2016-07-23] MEDS ORDERED: CALCIUM CARBONATE 500 MG TAB.CHEW PO PRN (12:00)
[2016-07-23] MEDS ORDERED: LORAZEPAM 0.5 MG TABLET. PO PRN (12:00)
[2016-07-23] MEDS ORDERED: OXYCODONE/APAP 5/325 TABLET. PO PRN (12:00)
[2016-07-23] MEDS ORDERED: CYCLOBENZAPRINE 10 MG TABLET. PO PRN (12:00)
[2016-07-23] MEDS ORDERED: LORAZEPAM 1 MG TABLET. PO PRN (12:00)
[2016-07-23] MEDS ORDERED: OXYCODONE/APAP 7.5/325 TABLET. PO PRN ×2 (12:30)
--- NOTE | 2016-07-23 14:11 | PDOC2 ---
NEUROLOGY CONSULT Date of Admission Date of Admission DATE: 07/23/16 TIME: 13:57 Reason for Consult Reason for Consult: IMPRESSION: MS changes. Confusion. Agitation. Metabolic encephalopathy. Recent knee surgery, bilateral CAD DM HTN HLD COPD Prostate cancer. Elevated ESR, 91 Polypharmacy. RECOMMENDATIONS/PLAN: Repeat HCT. Lab: see orders. Treat medical diseases. OT/PT. HISTORY OF THE PRESENT ILLNESS: 70-y-old male patient with above medical and surgical diseases and conditions has MS changes and confusion for 2 days before he was brought to the ER of [facility] on 07/22. He had recent bilateral knee replacement. Neurology was called for consultation on 07/23 for his MS changes. patient persistent he needed to go home saying he did not want to stay in hospital. PAST MEDICAL HISTORY: Please see above. PAST SURGERY HISTORY: Tonsillectomy Knee replacement. Prostatectomy. ALLERGY: Reviewed. MEDICATIONS: Refer to [facility] HISTORY: Non contributory. SOCIAL HISTORY: Lives at home. Denies illicit drug use. REVIEW OF SYSTEMS: Constitutional: No malnutrition, weight loss, cachexia. Head: No traumatic brain or head injury. Skin: No edema, or rash. Ear: No infection, tinnitus. Eyes: No vision loss or color blindness. Nose: No bleeding or purulent discharges. Hearing: Mild hearing decrease. Neck: No injury. Cardiac: CAD, HTN, HLD. Pulmonary: COPD. GI: No GI ulcer, GI bleeding. Urinary/genital: prostate cancer. Endocrinologic: Diabetes Mellitus. Skeletomuscular: Knee replacement. Neurological: see HP. Psychiatric: Denies drug use/abuse. Otherwise, not [id number] review of systems. PHYSICAL EXAMINATION: General appearance is in no acute distress. HEENT: Normocephalic and nontraumatic. Eyes, nose, ears, and throat are unremarkable. Neck is supple. No lymphadenopathy. No crepitus. Cardiovascular: S1, S2, regular rate and rhythm. Pulmonary: Clear to auscultation bilaterally. Abdomen: Bowel sounds are positive. Abdomen is soft, nontender, and nondistended. Extremities: No rash, lesions, or edema. No restriction of range of motion NEUROLOGICAL EXAMINATION: Awake. Not oriented to time, but knows place and person. PERRL. EOMI. CN: no focal findings. Muscle tone: within normal. Muscle strength: 5 UE, 4 LE DTR: 2 UE, not exam knee due to pain. Plantar reflex: Flexor response bilaterally Gait: not examined in chair. Sensory exam: no acute abnormal findings. No obvious cerebellar signs elicited. F-T-N test fine. Current Medications Current Medications Current Medications Haloperidol Lactate (Haldol) 2.5 mg 1X ONCE IM Last administered on 07/23/16 03:27; Start 07/22/16 at 16:00; Stop 07/22/16 at 16:01; Status DC Naloxone HCl 0.4 mg 0.4 mg 1X ONCE IV Last administered on 07/22/16 16:11; Start 07/22/16 at 16:00; Stop 07/22/16 at 16:01; Status DC Sodium Chloride (Iv Sodium Chloride 0.9% 1000ml Bag) 1,000 ml @ 100 mls/hr Q10H IV ; Start 07/22/16 at 18:00; Stop 07/23/16 at 03:59; Status DC Ondansetron HCl (Zofran) 4 mg PRN Q6HRS PRN IV NAUSEA/VOMITING; Start 07/22/16 at 17:15 Prochlorperazine Edisylate (Compazine) 10 mg PRN Q6HRS PRN IV NAUSEA/VOMITING; Start 07/22/16 at 17:15 Prochlorperazine (Compazine) 25 mg PRN Q12HR PRN AR NAUSEA/VOMITING; Start 07/22 at 17:15 Morphine Sulfate 2 mg PRN Q2HR PRN IV PAIN; Start 07/22/16 at 17:15 Ketorolac Tromethamine (Toradol) 15 mg PRN Q6HRS PRN IV PAIN; Start 07/22/16 at 17:15; Stop 07/27/16 at 17:14 Acetaminophen (Tylenol) 650 mg PRN Q6HRS PRN PO Headaches, Temp > 101.5F Last administered on 07/23/16 10:48; Start 07/22/16 at 17:15 Ibuprofen (Motrin) 400 mg PRN Q6HRS PRN PO MILD PAIN Last administered on 21:42; Start 07/22/16 at 17:15 Senna/Docusate Sodium (Senna Plus) 1 tab BID PO Last administered on 07/23/16 09:37; Start 07/22/16 at 21:00 Docusate Sodium (Colace) 100 mg BID PO Last administered on 07/23/16 09:37; Start 07/22/16 at 21:00 Magnesium Hydroxide (Milk Of Magnesia) 2,400 mg PRN Q12HR PRN PO CONSTIPATION; Start 07/22/16 at 17:15 Lactulose 20 gm PRN Q12HR PRN PO CONSTIPATION; Start 07/22/16 at 17:15 Bisacodyl (Dulcolax Supp) 10 mg PRN DAILY PRN AR CONSTIPATION; Start 07/22/16 at 17:15 Enoxaparin Sodium (Lovenox 40mg Syringe) 40 mg Q24H SQ ; Start 07/22/16 at 21:00 ; Stop 07/23/16 at 11:30; Status DC Haloperidol Lactate (Haldol) 5 mg PRN Q6HRS PRN IVP agitation Last administered on 07/22/16 20:58; Start 07/22/16 at 17:30; Stop 07/23/16 at 04:07; Status DC Labetalol HCl (Normodyne) 10 mg PRN Q2HR PRN IVP BP>160/100; Start 07/22/16 at 17:30 Lorazepam (Ativan) 2 mg PRN Q4HRS PRN IV ANXIETY / AGITATION; Start 07/22/16 at 17:30 Rivaroxaban (Xarelto) 10 mg DAILY PO ; Start 07/23/16 at 09:00 Haloperidol Lactate (Haldol) 5 mg PRN Q6HRS PRN IM agitation; Start 07/23/16 at 04:15 Ziprasidone (Geodon Im) 2.5 mg 1X ONCE IM ; Start 07/23/16 at 04:30; Stop at 04:30; Status DC Ziprasidone (Geodon Im) 5 mg 1X ONCE IM Last administered on 07/23/16 04:36; Start 07/23/16 at 05:00; Stop 07/23/16 at 05:01; Status DC Nicotine (Nicoderm Cq 21mg) 1 patch DAILY TD Last administered on 07/23/16 07: 27; Start 07/23/16 at 07:30 Amlodipine Besylate (Norvasc) 10 mg DAILY PO ; Start 07/23/16 at 12:00 Aspirin (Ecotrin) 81 mg DAILY PO ; Start 07/23/16 at 12:00 Celecoxib (Celebrex) 200 mg BID PO ; Start 07/23/16 at 21:00 Clopidogrel Bisulfate (Plavix) 75 mg DAILYWBKFT PO ; Start 07/23/16 at 13:00 Cyanocobalamin (Vitamin B-12) 2,000 mcg DAILY PO ; Start 07/23/16 at 12:00 Cyclobenzaprine HCl (Flexeril) 10 mg PRN TID PRN PO MUSCLE SPASMS; Start at 12:00 Docusate Sodium (Colace) 100 mg BID PO ; Start 07/23/16 at 21:00; Status Cancel Furosemide (Lasix) 20 mg DAILY PO ; Start 07/23/16 at 12:00 Glipizide (Glucotrol) 5 mg BID PO ; Start 07/23/16 at 21:00 Guaifenesin (Mucinex) 600 mg BID PO ; Start 07/23/16 at 21:00 Hydrochlorothiazide (Hydrodiuril) 25 mg DAILY PO ; Start 07/23/16 at 12:00 Lidocaine (Lidoderm) 2 patch DAILY TP ; Start 07/23/16 at 13:00 Lisinopril (Prinivil) 20 mg DAILY PO ; Start 07/23/16 at 13:00 Lorazepam (Ativan) 0.5 mg PRN Q2HR PRN PO ANXIETY / AGITATION; Start 07/23/16 at 12:00 Lorazepam (Ativan) 1 mg PRN Q2HR PRN PO ANXIETY / AGITATION; Start 07/23/16 at 12:00 Oxycodone/ Acetaminophen (Percocet 5/325) 1 tab PRN Q4HRS PRN PO PAIN; Start at 12:00 Polyethylene Glycol (miraLAX PACKET) 17 gm DAILY PO ; Start 07/23/16 at 13:00 Quetiapine Fumarate (SEROquel) 25 mg HS PO ; Start 07/23/16 at 21:00 Multivitamins/ Minerals (Ocuvite Lutein) 1 cap DAILY PO ; Start 07/23/16 at 13:00 Lactobacillus Acidophilus (Bacid, Luanne-Bid) 2 tab DAILY PO ; Start 07/23/16 at 13 :00 Albuterol/ Ipratropium (Duoneb) 3 ml RTQID NEB ; Start 07/23/16 at 16:00 Atorvastatin Calcium (Lipitor) 10 mg QHS PO ; Start 07/23/16 at 21:00 Multivitamins/ Calcium (Thera M Plus) 1 tab DAILY PO ; Start 07/23/16 at 13:00 Pantoprazole Sodium (Protonix) 40 mg DAILYAC PO ; Start 07/23/16 at 13:00 Potassium Chloride (Klor-Con) 20 meq DAILYWBKFT PO ; Start 07/23/16 at 13:00 Famotidine (Pepcid) 20 mg QHS PO ; Start 07/23/16 at 21:00 Simethicone (Gas-X) 160 mg DAILY PO ; Start 07/23/16 at 13:00 Oxybutynin Chloride (Ditropan) 5 mg [id number] PO ; Start 07/23/16 at 14:00 Oxycodone/ Acetaminophen (Percocet 7.5/ 325) 1 tab PRN Q6HRS PRN PO PAIN; Start 07/23/16 at 12:30 Oxycodone/ Acetaminophen (Percocet 7.5/ 325) 2 tab PRN Q6HRS PRN PO PAIN; Start 07/23/16 at 12:30 Calcium Carbonate/ Glycine (Tums) 500 mg PRN AFTMEALHC PRN PO INDIGESTION; Start 07/23/16 at 12:00 Fish Oil (Fish Oil) 1,000 mg DAILY PO ; Start 07/23/16 at 13:00 Metoclopramide HCl (Reglan) 10 mg QIDACHS PO ; Start 07/23/16 at 16:30 Active Scripts Active [Oxycodone Hcl/Acetaminophen] 1 TAB Tablet 2 Tab PO PRN Q6HRS PRN [Oxycodone Hcl/Acetaminophen] 1 TAB Tablet 1 Tab PO PRN Q6HRS PRN Colace (Docusate Sodium) 100 Mg Capsule 100 Mg PO BID Cyclobenzaprine Hcl 10 Mg Tablet 10 Mg PO PRN TID PRN Mucinex (Guaifenesin) 600 Mg Tablet.er 600 Mg PO BID 14 Days Reported Metoclopramide Hcl 10 Mg Tablet 10 Mg PO QIDACHS Celecoxib 200 Mg Capsule 200 Mg PO BID Miralax (Polyethylene Glycol 3350) 17 Gm Powd.pack 1 Packet PO DAILY Potassium Chloride 20 Meq Tablet.er 20 Meq PO DAILY Ranitidine Hcl 150 Mg Tablet 150 Mg PO DAILY Ocuvite Tablet (Vit A,C & E/Lutein/Minerals) 1 Each Tablet 1 Each PO DAILY Align (Bifidobacterium Infantis) 4 Mg Capsule 4 Mg PO DAILY Xarelto (Rivaroxaban) 10 Mg Tablet 1 Tab PO DAILY Simethicone 180 Mg Capsule 180 Mg PO DAILY Lorazepam 1 Mg Tablet 1 Tab PO PRN Q2HR PRN Quetiapine Fumarate 25 Mg Tablet 25 Mg PO HS Lorazepam 0.5 Mg Tablet 1 Tab PO PRN Q2HR PRN Oxycodone-Acetaminophen 5-325 (Oxycodone Hcl/Acetaminophen) 1 Each Tablet 1-2 Each PO PRN Q4HRS PRN Lidoderm (Lidocaine) 700 Mg Adh..patch 2 Patch TP DAILY Glipizide 5 Mg Tablet 1 Tab PO BID LAST DOSE GIVEN: DATE:05-01-15 TIME:8:30 a.m. NEXT DOSE DUE: DATE:05-01-15 TIME:5:00 p.m. Hydrochlorothiazide Tablet (Hydrochlorothiazide) 25 Mg Tablet 1 Tab PO DAILY Not taken while in hosp. due to low blood pressure. Check blood pressure before taking if systolic blood pressure below 110 do not take. Vesicare (Solifenacin Succinate) 10 Mg Tablet 1 Tab PO DAILY LAST DOSE GIVEN: DATE:05-01-15 TIME:8:30 a.m. NEXT DOSE DUE: DATE:05-02-15 TIME:8:30 a.m. Amlodipine Besylate 5 Mg Tablet 10 Mg PO DAILY Not given while in hosp. due to low blood pressure. May resume at home as directed. Check blood pressure first if below 110 systolic do not take. Lisinopril 20 Mg Tablet 2 Tab PO DAILY Not taken in hosp. due to low blood pressure. Evelyn resume at home as directed but check blood pressure first. If systolic below 110 do not take. Combivent Respimat Inhal (Ipratropium/Albuterol Sulfate) 4 Gm Aer.w.adap 1 Inh IH QID Not taken while in hosp. May resume at home as needed as directed. Caltrate 600 (Calcium Carbonate) 600 Mg Tablet 600 Mg PO Not taken while in hosp. May resume at home as directed. B-12 (Cyanocobalamin (Vitamin B-12)) 1,000 Mcg Tablet 2,000 Mcg PO Not taken while in hosp. May resume at home as directed Multi-Day Vitamins (Multivitamin) 1 Each Tablet 1 Tab PO DAILY Not taken while in hosp. May resume at home as directed Fish Oil ([place]-3 Fatty Acids) 500 Mg Capsule.dr 500 Mg PO Not taken while in hsop. May resume at home as directed Aspir 81 (Aspirin) 81 Mg Tablet. 1 Tab PO DAILY LAST DOSE GIVEN: DATE:05-01-15 TIME:8:30 a.m. NEXT DOSE DUE: DATE:05-02-15 TIME:8:30 a.m. Furosemide 20 Mg Tablet 1 Tab PO DAILY Not taken while in hosp. May resume at home as directed. Check blood pressure before taking if 110 or below systolic do not take. Plavix (Clopidogrel Bisulfate) 75 Mg Tablet 1 Tab PO DAILY Not taken while in hosp. May resume at home as directed Omeprazole 40 Mg Capsule. 1 Cap PO DAILY LAST DOSE GIVEN: DATE:05-01-15 TIME:7:30 a.m. NEXT DOSE DUE: DATE:05-02-15 TIME:7:30 a.m. Lovastatin 40 Mg Tablet 1 Tab PO HS LAST DOSE GIVEN: DATE:04-30-15 TIME:9:00 p.m. NEXT DOSE DUE: DATE:05-01-15 TIME:9:00 p.m. Allergies Allergies: Coded Allergies: No Known Drug Allergies (Unverified , 04/30/15) Vitals VITALS Vital Signs Date Time Temp Pulse Resp B/P Pulse Ox O2 Delivery O2 Flow Rate FiO2 07/23/16 11:00 98.6 104 20 120/52 92 Nasal Cannula 3.0 98.6 Labs Labs Laboratory Tests Test 07/22/16 15:15 07/22/16 15:30 07/22/16 17:00 07/23/16 05:40 White Blood Count 7.0x10^3/uL (4.0-11.0) 7.7x10^3/uL (4.0-11.0) Red Blood Count 3.27x10^6/uL (4.30-5.70) 3.47x10^6/uL (4.30-5.70) Hemoglobin 10.1g/dL (13.0-17.5) 10.8g/dL (13.0-17.5) Hematocrit 30.0% (39.0-53.0) 31.2% (39.0-53.0) Mean Corpuscular Volume 92fL (79-100) 90fL (79-100) Mean Corpuscular Hemoglobin 31pg (25-35) 31pg (25-35) Mean Corpuscular Hemoglobin Concent 34g/dL (31-37) 35g/dL (31-37) Red Cell Distribution Width 13.7% (11.5-14.5) 13.7% (11.5-14.5) Platelet Count 210x10^3/uL (140-400) 243x10^3/uL (140-400) Neutrophils (%) (Auto) 65% (31-73) 72% (31-73) Lymphocytes (%) (Auto) 14% (24-48) 10% (24-48) Monocytes (%) (Auto) 16% (0-9) 15% (0-9) Eosinophils (%) (Auto) 5% (0-3) 3% (0-3) Basophils (%) (Auto) 0% (0-3) 0% (0-3) Neutrophils # (Auto) 4.6x10^3uL (1.8-7.7) 5.6x10^3uL (1.8-7.7) Lymphocytes # (Auto) 1.0x10^3/uL (1.0-4.8) 0.8x10^3/uL (1.0-4.8) Monocytes # (Auto) 1.1x10^3/uL (0.0-1.1) 1.1x10^3/uL (0.0-1.1) Eosinophils # (Auto) 0.3x10^3/uL (0.0-0.7) 0.2x10^3/uL (0.0-0.7) Basophils # (Auto) 0.0x10^3/uL (0.0-0.2) 0.0x10^3/uL (0.0-0.2) Erythrocyte Sedimentation Rate 91 (0-15) Sodium Level 139mmol/L (136-145) 143mmol/L (136-145) Potassium Level 4.7mmol/L (3.5-5.1) 4.4mmol/L (3.5-5.1) Chloride Level 102mmol/L (98-107) 102mmol/L (98-107) Carbon Dioxide Level 31mmol/L (21-32) 31mmol/L (21-32) Anion Gap 6 (6-14) 10 (6-14) Blood Urea Nitrogen 44mg/dL (8-26) 36mg/dL (8-26) Creatinine 1.6mg/dL (0.7-1.3) 1.2mg/dL (0.7-1.3) Estimated GFR (Cockcroft-Gault) 43.1 60.0 Glucose Level 237mg/dL (70-99) 207mg/dL (70-99) Calcium Level 9.9mg/dL (8.5-10.1) 9.6mg/dL (8.5-10.1) Total Bilirubin 0.7mg/dL (0.2-1.0) Direct Bilirubin 0.2mg/dL (0.0-0.2) Aspartate Amino Transf (AST/SGOT) 27U/L (15-37) Alanine Aminotransferase (ALT/SGPT) 41U/L (16-63) Alkaline Phosphatase 26U/L (46-116) Troponin I Quantitative 0.031ng/mL (0.000-0.055) KA-Lyk-W-Type Natriuretic Peptide 724pg/mL (0-124) Total Protein 6.6g/dL (6.4-8.2) Albumin 2.8g/dL (3.4-5.0) Lipase 78U/L (73-393) Lactic Acid Level 0.9mmol/L (0.4-2.0) Ammonia 33mcmol/L (11-34) Urine Collection Type Unknown Urine Color Yellow Urine Clarity Clear Urine pH 5.5 Urine Specific [place] 1.015 Urine Protein Negativemg/dL (NEG-TRACE) Urine Glucose (UA) Negativemg/dL (NEG) Urine Ketones (Stick) Negativemg/dL (NEG) Urine Blood Negative (NEG) Urine Nitrite Negative (NEG) Urine Bilirubin Negative (NEG) Urine Urobilinogen Dipstick 1.0mg/dL (0.2 mg/dL) Urine Leukocyte Esterase Negative (NEG) Urine RBC Occ/HPF (0-2) Urine WBC 0/HPF (0-4) Urine Bacteria 0/HPF (0-FEW) Urine Hyaline Casts Moderate/HPF Urine Mucus Slight/LPF Laboratory Tests Test 07/22/16 15:15 07/22/16 15:30 07/22/16 17:00 07/23/16 05:40 White Blood Count 7.0x10^3/uL (4.0-11.0) 7.7x10^3/uL (4.0-11.0) Red Blood Count 3.27x10^6/uL (4.30-5.70) 3.47x10^6/uL (4.30-5.70) Hemoglobin 10.1g/dL (13.0-17.5) 10.8g/dL (13.0-17.5) Hematocrit 30.0% (39.0-53.0) 31.2% (39.0-53.0) Mean Corpuscular Volume 92fL (79-100) 90fL (79-100) Mean Corpuscular Hemoglobin 31pg (25-35) 31pg (25-35) Mean Corpuscular Hemoglobin Concent 34g/dL (31-37) 35g/dL (31-37) Red Cell Distribution Width 13.7% (11.5-14.5) 13.7% (11.5-14.5) Platelet Count 210x10^3/uL (140-400) 243x10^3/uL (140-400) Neutrophils (%) (Auto) 65% (31-73) 72% (31-73) Lymphocytes (%) (Auto) 14% (24-48) 10% (24-48) Monocytes (%) (Auto) 16% (0-9) 15% (0-9) Eosinophils (%) (Auto) 5% (0-3) 3% (0-3) Basophils (%) (Auto) 0% (0-3) 0% (0-3) Neutrophils # (Auto) 4.6x10^3uL (1.8-7.7) 5.6x10^3uL (1.8-7.7) Lymphocytes # (Auto) 1.0x10^3/uL (1.0-4.8) 0.8x10^3/uL (1.0-4.8) Monocytes # (Auto) 1.1x10^3/uL (0.0-1.1) 1.1x10^3/uL (0.0-1.1) Eosinophils # (Auto) 0.3x10^3/uL (0.0-0.7) 0.2x10^3/uL (0.0-0.7) Basophils # (Auto) 0.0x10^3/uL (0.0-0.2) 0.0x10^3/uL (0.0-0.2) Erythrocyte Sedimentation Rate 91 (0-15) Sodium Level 139mmol/L (136-145) 143mmol/L (136-145) Potassium Level 4.7mmol/L (3.5-5.1) 4.4mmol/L (3.5-5.1) Chloride Level 102mmol/L (98-107) 102mmol/L (98-107) Carbon Dioxide Level 31mmol/L (21-32) 31mmol/L (21-32) Anion Gap 6 (6-14) 10 (6-14) Blood Urea Nitrogen 44mg/dL (8-26) 36mg/dL (8-26) Creatinine 1.6mg/dL (0.7-1.3) 1.2mg/dL (0.7-1.3) Estimated GFR (Cockcroft-Gault) 43.1 60.0 Glucose Level 237mg/dL (70-99) 207mg/dL (70-99) Calcium Level 9.9mg/dL (8.5-10.1) 9.6mg/dL (8.5-10.1) Total Bilirubin 0.7mg/dL (0.2-1.0) Direct Bilirubin 0.2mg/dL (0.0-0.2) Aspartate Amino Transf (AST/SGOT) 27U/L (15-37) Alanine Aminotransferase (ALT/SGPT) 41U/L (16-63) Alkaline Phosphatase 26U/L (46-116) Troponin I Quantitative 0.031ng/mL (0.000-0.055) TB-Duy-C-Type Natriuretic Peptide 724pg/mL (0-124) Total Protein 6.6g/dL (6.4-8.2) Albumin 2.8g/dL (3.4-5.0) Lipase 78U/L (73-393) Lactic Acid Level 0.9mmol/L (0.4-2.0) Ammonia 33mcmol/L (11-34) Urine Collection Type Unknown Urine Color Yellow Urine Clarity Clear Urine pH 5.5 Urine Specific [place] 1.015 Urine Protein Negativemg/dL (NEG-TRACE) Urine Glucose (UA) Negativemg/dL (NEG) Urine Ketones (Stick) Negativemg/dL (NEG) Urine Blood Negative (NEG) Urine Nitrite Negative (NEG) Urine Bilirubin Negative (NEG) Urine Urobilinogen Dipstick 1.0mg/dL (0.2 mg/dL) Urine Leukocyte Esterase Negative (NEG) Urine RBC Occ/HPF (0-2) Urine WBC 0/HPF (0-4) Urine Bacteria 0/HPF (0-FEW) Urine Hyaline Casts Moderate/HPF Urine Mucus Slight/LPF ETHEL LARES MD Jul 23, 2016 14:11
[2016-07-23] MEDS: POLYETHYLENE GLYCOL 3350 17 GM PACKET. PO SCH (14:23)
[2016-07-23] MEDS: PANTOPRAZOLE 40 MG TABLET. PO SCH (14:24)
[2016-07-23] MEDS: OMEGA-3 FATTY ACIDS/FISH OIL 1,000 MG CAPSULE. PO SCH (14:24)
[2016-07-23] MEDS: MULTIVITAMIN EYE FORMULA CAPSULE. PO SCH (14:24)
[2016-07-23] MEDS: POTASSIUM CHLORIDE 20 MEQ TABLET.ER. PO SCH (14:24)
[2016-07-23] MEDS: MULTIVITAMIN with MINERAL TABLET. PO SCH (14:24)
[2016-07-23] MEDS: LIDOCAINE (700MG/PATCH) PATCH. TP SCH (14:24)
[2016-07-23] MEDS: LACTOBACILLUS ACIDOPH & BULGAR 1 TABLET. PO SCH (14:25)
[2016-07-23] MEDS: CLOPIDOGREL BISULFATE 75 MG TABLET PO SCH (14:25)
[2016-07-23] MEDS: CYANOCOBALAMIN (VITAMIN B-12) 1,000 MCG TABLET. PO SCH (14:25)
[2016-07-23] MEDS: ASPIRIN ENTERIC COATED 81 MG TABLET.DR. PO SCH (14:25)
[2016-07-23] MEDS: SIMETHICONE 80 MG TAB.CHEW PO SCH (14:26)
[2016-07-23] MEDS: AMLODIPINE BESYLATE 5 MG TABLET PO SCH (14:26)
[2016-07-23] MEDS: OXYBUTYNIN CHLORIDE 5 MG TABLET PO SCH ×2 (14:27→20:33)
[2016-07-23] MEDS: HYDROCHLOROTHIAZIDE 25 MG TABLET PO SCH (14:27)
[2016-07-23] MEDS: LISINOPRIL 20 MG TABLET PO SCH (14:27)
[2016-07-23] MEDS: FUROSEMIDE 20 MG TABLET PO SCH (14:28)
[2016-07-23 15:00] VITALS: BP 117/74
--- NOTE | 2016-07-23 15:39 | RAD ---
CT head without contrast History: Confusion, mental status change. Comparison: 07/22/2016. Procedure: Axial images are obtained of the head from the skull base through the vertex without IV contrast. Findings: Mild bilateral periventricular white matter hypodensities likely chronic small vessel ischemic disease. The ventricles and sulci are normal for the patient's age. No mass-effect, intracranial mass, midline shift, hemorrhage or obvious acute infarction is identified. Basilar cisterns are patent. Bone windows demonstrate no significant calvarial abnormality. The visualized paranasal sinuses appear clear. Impression: 1. No acute intracranial process. PQRS Compliance Statement: One or more of the following individualized dose reduction techniques were utilized for this examination: 1. Automated exposure control 2. Adjustment of the mA and/or kV according to patient size 3. Use of iterative reconstruction technique
[2016-07-23] MEDS: METOCLOPRAMIDE 10 MG TABLET PO SCH ×2 (16:45→20:33)
[2016-07-23 19:00] VITALS: BP 94/46
[2016-07-23] MEDS: CELECOXIB 200 MG CAPSULE PO SCH (20:31)
[2016-07-23] MEDS: GUAIFENESIN ER 600 MG TABLET.ER PO SCH (20:32)
[2016-07-23] MEDS: ATORVASTATIN CALCIUM 10 MG TABLET. PO SCH (20:32)
[2016-07-23] MEDS: QUEtiapine 25 MG TABLET. PO SCH (20:32)
[2016-07-23] MEDS: FAMOTIDINE 20 MG TABLET. PO SCH (20:33)
[2016-07-23] MEDS: GLIPIZIDE 5 MG TABLET PO SCH (20:33)
[2016-07-23] MEDS: IPRATRPIUM/ALBUTEROL 0.5/2.5MG 3 ML NEBU. NEB SCH (20:45)
[2016-07-23] MEDS ORDERED: DOCUSATE SODIUM 100 MG CAPSULE PO SCH (21:00)
[2016-07-23 23:30] VITALS: BP 94/53
[2016-07-24 03:08] VITALS: BP 100/58
[2016-07-24 07:07] VITALS: BP 89/65
[2016-07-24] MEDS: IPRATRPIUM/ALBUTEROL 0.5/2.5MG 3 ML NEBU. NEB SCH ×4 (08:00→19:30)
--- NOTE | 2016-07-24 08:58 | PDOC3 ---
Discharge Summary Visit Information Date of Admission: Jul 22, 2016 Date of Discharge: Jul 24, 2016 Admitting Diagnosis Comment: 1. Acute metabolic encephalopathy likely medication induced 2. Polypharmacy - on 40 meds (med list reviewed) 3. Recent bilateral Knee sx ([facility]) - family denies delirium, perioperatively 4, Obesity 5. MIld to mod PCM GERD, hypertension, asthma/COPD, previous smoker, and overactive bladder. 6. FOREIGN, vasomotor Final Diagnosis Problems Medical Problems: (1) Confusion Status: Acute (2) Delirium Status: Acute (3) Encephalopathy acute Status: Acute (4) Metabolic encephalopathy Status: Acute Brief Hospital Course Allergies Allergies Coded Allergies Type Severity Reaction Last Updated Verified No Known Drug Allergies 04/30/15 No Vital Signs Vital Signs Date Time Temp Pulse Resp B/P Pulse Ox O2 Delivery O2 Flow Rate FiO2 07/24/16 08:17 96 Room Air 07/24/16 07:07 98.2 88 89/65 3.0 98.2 07/24/16 03:08 20 Lab Results Laboratory Tests Test 07/22/16 15:15 07/22/16 15:30 07/22/16 17:00 07/23/16 05:40 White Blood Count 7.0x10^3/uL (4.0-11.0) 7.7x10^3/uL (4.0-11.0) Red Blood Count 3.27x10^6/uL (4.30-5.70) 3.47x10^6/uL (4.30-5.70) Hemoglobin 10.1g/dL (13.0-17.5) 10.8g/dL (13.0-17.5) Hematocrit 30.0% (39.0-53.0) 31.2% (39.0-53.0) Mean Corpuscular Volume 92fL (79-100) 90fL (79-100) Mean Corpuscular Hemoglobin 31pg (25-35) 31pg (25-35) Mean Corpuscular Hemoglobin Concent 34g/dL (31-37) 35g/dL (31-37) Red Cell Distribution Width 13.7% (11.5-14.5) 13.7% (11.5-14.5) Platelet Count 210x10^3/uL (140-400) 243x10^3/uL (140-400) Neutrophils (%) (Auto) 65% (31-73) 72% (31-73) Lymphocytes (%) (Auto) 14% (24-48) 10% (24-48) Monocytes (%) (Auto) 16% (0-9) 15% (0-9) Eosinophils (%) (Auto) 5% (0-3) 3% (0-3) Basophils (%) (Auto) 0% (0-3) 0% (0-3) Neutrophils # (Auto) 4.6x10^3uL (1.8-7.7) 5.6x10^3uL (1.8-7.7) Lymphocytes # (Auto) 1.0x10^3/uL (1.0-4.8) 0.8x10^3/uL (1.0-4.8) Monocytes # (Auto) 1.1x10^3/uL (0.0-1.1) 1.1x10^3/uL (0.0-1.1) Eosinophils # (Auto) 0.3x10^3/uL (0.0-0.7) 0.2x10^3/uL (0.0-0.7) Basophils # (Auto) 0.0x10^3/uL (0.0-0.2) 0.0x10^3/uL (0.0-0.2) Erythrocyte Sedimentation Rate 91 (0-15) Sodium Level 139mmol/L (136-145) 143mmol/L (136-145) Potassium Level 4.7mmol/L (3.5-5.1) 4.4mmol/L (3.5-5.1) Chloride Level 102mmol/L (98-107) 102mmol/L (98-107) Carbon Dioxide Level 31mmol/L (21-32) 31mmol/L (21-32) Anion Gap 6 (6-14) 10 (6-14) Blood Urea Nitrogen 44mg/dL (8-26) 36mg/dL (8-26) Creatinine 1.6mg/dL (0.7-1.3) 1.2mg/dL (0.7-1.3) Estimated GFR (Cockcroft-Gault) 43.1 60.0 Glucose Level 237mg/dL (70-99) 207mg/dL (70-99) Calcium Level 9.9mg/dL (8.5-10.1) 9.6mg/dL (8.5-10.1) Total Bilirubin 0.7mg/dL (0.2-1.0) Direct Bilirubin 0.2mg/dL (0.0-0.2) Aspartate Amino Transf (AST/SGOT) 27U/L (15-37) Alanine Aminotransferase (ALT/SGPT) 41U/L (16-63) Alkaline Phosphatase 26U/L (46-116) Troponin I Quantitative 0.031ng/mL (0.000-0.055) KV-Unt-E-Type Natriuretic Peptide 724pg/mL (0-124) Total Protein 6.6g/dL (6.4-8.2) Albumin 2.8g/dL (3.4-5.0) Lipase 78U/L (73-393) Lactic Acid Level 0.9mmol/L (0.4-2.0) Ammonia 33mcmol/L (11-34) Urine Collection Type Unknown Urine Color Yellow Urine Clarity Clear Urine pH 5.5 Urine Specific [place] 1.015 Urine Protein Negativemg/dL (NEG-TRACE) Urine Glucose (UA) Negativemg/dL (NEG) Urine Ketones (Stick) Negativemg/dL (NEG) Urine Blood Negative (NEG) Urine Nitrite Negative (NEG) Urine Bilirubin Negative (NEG) Urine Urobilinogen Dipstick 1.0mg/dL (0.2 mg/dL) Urine Leukocyte Esterase Negative (NEG) Urine RBC Occ/HPF (0-2) Urine WBC 0/HPF (0-4) Urine Bacteria 0/HPF (0-FEW) Urine Hyaline Casts Moderate/HPF Urine Mucus Slight/LPF Creatine Kinase 385U/L (39-308) Thyroid Stimulating Hormone (TSH) 0.894uIU/mL (0.358-3.74) Brief Hospital Course Mr. Nieto is a 70 old male sent from [facility] of severe confusion, Stayed weekend here, polypharmacy (40 diff meds), recent bilateral TKA at [facility], medical work up here neg, Enceph unclear etiology or maybe just polypharmacy, Got better when I restarted his pain meds - NO CHANGE IN MEDS. BACK TO SNU today Pt seen and examined DispO; SNU dc 31 mins Discharge Information Condition at Discharge: Improved, Stable Disposition/Orders: Other (snu) Scheduled Amlodipine Besylate (Amlodipine Besylate) 10 MG PO DAILY (Reported) Aspirin (Aspir 81) 1 TAB PO DAILY (Reported) Bifidobacterium Infantis (Align) 4 MG PO DAILY (Reported) Celecoxib (Celecoxib) 200 MG PO BID (Reported) Clopidogrel Bisulfate (Plavix) 1 TAB PO DAILY (Reported) Docusate Sodium (Colace) 100 MG PO BID Furosemide (Furosemide) 1 TAB PO DAILY (Reported) Glipizide (Glipizide) 1 TAB PO BID (Reported) Guaifenesin (Mucinex) 600 MG PO BID Hydrochlorothiazide (Hydrochlorothiazide Tablet ) 1 TAB PO DAILY (Reported) Ipratropium/Albuterol Sulfate (Combivent Respimat Inhal) 1 INH IH QID (Reported ) Lidocaine (Lidoderm) 2 PATCH TP DAILY (Reported) Lisinopril (Lisinopril) 2 TAB PO DAILY (Reported) Lovastatin (Lovastatin) 1 TAB PO HS (Reported) Metoclopramide Hcl (Metoclopramide Hcl) 10 MG PO QIDACHS (Reported) Multivitamin (Multi-Day Vitamins) 1 TAB PO DAILY (Reported) Omeprazole (Omeprazole) 1 CAP PO DAILY (Reported) Polyethylene Glycol 3350 (Miralax) 1 PACKET PO DAILY (Reported) Potassium Chloride (Potassium Chloride) 20 MEQ PO DAILY (Reported) Quetiapine Fumarate (Quetiapine Fumarate) 25 MG PO HS (Reported) Ranitidine Hcl (Ranitidine Hcl) 150 MG PO DAILY (Reported) Rivaroxaban (Xarelto) 1 TAB PO DAILY (Reported) Simethicone (Simethicone) 180 MG PO DAILY (Reported) Solifenacin Succinate (Vesicare) 1 TAB PO DAILY (Reported) Vit A,C & E/Lutein/Minerals (Ocuvite Tablet) 1 EACH PO DAILY (Reported) Scheduled PRN ([Oxycodone Hcl/Acetaminophen]) 1 TAB PO PRN Q6HRS PRN PRN PAIN ([Oxycodone Hcl/Acetaminophen]) 2 TAB PO PRN Q6HRS PRN PRN PAIN Cyclobenzaprine Hcl (Cyclobenzaprine Hcl) 10 MG PO PRN TID PRN PRN MUSCLE SPASMS Lorazepam (Lorazepam) 1 TAB PO PRN Q2HR PRN PRN ANXIETY / AGITATION (Reported) Lorazepam (Lorazepam) 1 TAB PO PRN Q2HR PRN PRN ANXIETY / AGITATION (Reported) Oxycodone Hcl/Acetaminophen (Oxycodone-Acetaminophen 5-325) 1-2 EACH PO PRN Q4HRS PRN PRN PAIN (Reported) Miscellaneous Medications Calcium Carbonate (Caltrate 600) 600 MG PO (Reported) Cyanocobalamin (Vitamin B-12) (B-12) 2,000 MCG PO (Reported) Hurt-3 Fatty Acids (Fish Oil) 500 MG PO (Reported) Discontinued Medications Alprazolam (Xanax) 0.5 MG PO PRN Q6HRS PRN PRN ANXIETY / AGITATION (Reported) Meloxicam (Meloxicam) 1 TAB PO DAILY (Reported) Metformin Hcl (Metformin Hcl) 1 TAB PO BID (Reported) Oxycodone/Apap 7.5-325 (Percocet 7.5-325 Mg Tablet) 1 TAB PO QID (Reported) CHU HUMMEL MD Jul 24, 2016 08:58
[2016-07-24] MEDS: LISINOPRIL 20 MG TABLET PO SCH (09:00)
[2016-07-24] MEDS: AMLODIPINE BESYLATE 5 MG TABLET PO SCH (09:00)
[2016-07-24] MEDS: POLYETHYLENE GLYCOL 3350 17 GM PACKET. PO SCH (09:31)
[2016-07-24] MEDS: NICOTINE 21MG PATCH. TD SCH (09:32)
[2016-07-24] MEDS: GUAIFENESIN ER 600 MG TABLET.ER PO SCH ×2 (09:33→20:29)
[2016-07-24] MEDS: LIDOCAINE (700MG/PATCH) PATCH. TP SCH (09:33)
[2016-07-24] MEDS: LACTOBACILLUS ACIDOPH & BULGAR 1 TABLET. PO SCH (09:33)
[2016-07-24] MEDS: MULTIVITAMIN EYE FORMULA CAPSULE. PO SCH (09:34)
[2016-07-24] MEDS: CLOPIDOGREL BISULFATE 75 MG TABLET PO SCH (09:34)
[2016-07-24] MEDS: ASPIRIN ENTERIC COATED 81 MG TABLET.DR. PO SCH (09:34)
[2016-07-24] MEDS: FUROSEMIDE 20 MG TABLET PO SCH (09:34)
[2016-07-24] MEDS: DOCUSATE SODIUM 100 MG CAPSULE PO SCH ×2 (09:34→20:29)
[2016-07-24] MEDS: PANTOPRAZOLE 40 MG TABLET. PO SCH (09:34)
[2016-07-24] MEDS: POTASSIUM CHLORIDE 20 MEQ TABLET.ER. PO SCH (09:35)
[2016-07-24] MEDS: CYANOCOBALAMIN (VITAMIN B-12) 1,000 MCG TABLET. PO SCH (09:35)
[2016-07-24] MEDS: MULTIVITAMIN with MINERAL TABLET. PO SCH (09:35)
[2016-07-24] MEDS: GLIPIZIDE 5 MG TABLET PO SCH ×2 (09:35→20:29)
[2016-07-24] MEDS: SIMETHICONE 80 MG TAB.CHEW PO SCH (09:35)
[2016-07-24] MEDS: SENNOSIDES/DOCUSATE 8.6/50MG TABLET. PO SCH ×2 (09:35→20:29)
[2016-07-24] MEDS: OMEGA-3 FATTY ACIDS/FISH OIL 1,000 MG CAPSULE. PO SCH (09:36)
[2016-07-24] MEDS: CELECOXIB 200 MG CAPSULE PO SCH ×2 (09:36→20:29)
[2016-07-24] MEDS: METOCLOPRAMIDE 10 MG TABLET PO SCH ×4 (09:36→20:29)
[2016-07-24] MEDS: RIVAROXABAN 10 MG TABLET. PO SCH (09:37)
[2016-07-24] MEDS: HYDROCHLOROTHIAZIDE 25 MG TABLET PO SCH (09:37)
[2016-07-24] MEDS: OXYBUTYNIN CHLORIDE 5 MG TABLET PO SCH ×3 (09:37→20:29)
--- NOTE | 2016-07-24 10:14 | PDOC ---
PROGRESS NOTES Assessment Assessment MS changes. Confusion. Agitation. Metabolic encephalopathy. Recent knee surgery, bilateral CAD DM HTN HLD COPD Prostate cancer. Elevated ESR, 91 Polypharmacy. RECOMMENDATIONS/PLAN: Treat medical diseases. OT/PT. 2 HCTs negative. No signs of large acute CVA. HISTORY OF THE PRESENT ILLNESS: 70-y-old male patient with above medical and surgical diseases and conditions has MS changes and confusion for 2 days before he was brought to the ER of [facility] on 07/22. He had recent bilateral knee replacement. Neurology was called for consultation on 07/23 for his MS changes. patient persistent he needed to go home saying he did not want to stay in hospital. His symptoms improved and his mentation is at baseline normal. PAST MEDICAL HISTORY: Please see above. PAST SURGERY HISTORY: Tonsillectomy Knee replacement. Prostatectomy. ALLERGY: Reviewed. MEDICATIONS: Refer to [facility] FAMILY HISTORY: Non contributory. SOCIAL HISTORY: Lives at home. Denies illicit drug use. REVIEW OF SYSTEMS: Constitutional: No malnutrition, weight loss, cachexia. Head: No traumatic brain or head injury. Skin: No edema, or rash. Ear: No infection, tinnitus. Eyes: No vision loss or color blindness. Nose: No bleeding or purulent discharges. Hearing: Mild hearing decrease. Neck: No injury. Cardiac: CAD, HTN, HLD. Pulmonary: COPD. GI: No GI ulcer, GI bleeding. Urinary/genital: prostate cancer. Endocrinologic: Diabetes Mellitus. Skeletomuscular: Knee replacement. Neurological: see HP. Psychiatric: Denies drug use/abuse. Otherwise, not [id number] review of systems. PHYSICAL EXAMINATION: General appearance is in no acute distress. HEENT: Normocephalic and nontraumatic. Eyes, nose, ears, and throat are unremarkable. Neck is supple. No lymphadenopathy. No crepitus. Cardiovascular: S1, S2, regular rate and rhythm. Pulmonary: Clear to auscultation bilaterally. Abdomen: Bowel sounds are positive. Abdomen is soft, nontender, and nondistended. Extremities: No rash, lesions, or edema. No restriction of range of motion NEUROLOGICAL EXAMINATION: Awake. Oriented to time, place and person. PERRL. EOMI. CN: no focal findings. Muscle tone: within normal. Muscle strength: 5 UE, 4 LE DTR: 2 UE, not exam knee due to pain. Plantar reflex: Flexor response bilaterally Gait: He is able to walk with a walker. Sensory exam: no acute abnormal findings. No obvious cerebellar signs elicited. F-T-N test fine. Objective Objective Vital Signs Date Time Temp Pulse Resp B/P Pulse Ox O2 Delivery O2 Flow Rate FiO2 07/24/16 09:00 88 89/65 07/24/16 08:17 96 Room Air 07/24/16 07:07 98.2 3.0 98.2 07/24/16 03:08 20 Intake and Output 07/24/16 07:00 Intake Total 1080 ml Balance 1080 ml Intake Oral 1080 ml # Voids 6 # Bowel Movements 2 Vitals Signs Vitals VS - Last 72 Hours, by Label Date Time Temp Pulse Resp B/P Pulse Ox O2 Delivery O2 Flow Rate FiO2 07/24/16 09:00 88 89/65 07/24/16 09:00 88 89/65 07/24/16 08:17 96 Room Air 07/24/16 07:07 98.2 88 89/65 97 Nasal Cannula 3.0 98.2 07/24/16 03:08 97.5 86 20 100/58 92 Nasal Cannula 3.0 97.5 07/24/16 02:05 92 Nasal Cannula 3.0 07/24/16 01:04 91 Nasal Cannula 3.0 07/23/16 23:30 98.1 88 24 94/53 91 Nasal Cannula 3.0 98.1 07/23/16 20:47 90 Room Air 07/23/16 20:00 Nasal Cannula 3.0 07/23/16 19:00 98.5 88 18 94/46 94 Nasal Cannula 3.0 98.5 07/23/16 15:00 97.9 94 20 117/74 94 Nasal Cannula 3.0 97.9 07/23/16 14:27 104 120/52 07/23/16 14:26 104 120/52 07/23/16 11:00 98.6 104 20 120/52 92 Nasal Cannula 3.0 98.6 07/23/16 08:00 Nasal Cannula 3.0 07/23/16 07:00 98.4 120 20 104/51 84 Room Air 98.4 Medication Medications Current Medications Albuterol/ Ipratropium (Duoneb) 3 ml RTQID NEB Last administered on 07/24/16t 08 :00; Start 07/23/16 at 16:00 Amlodipine Besylate (Norvasc) 10 mg DAILY PO Last administered on 07/23/16 14: 26; Start 07/23/16 at 12:00 Aspirin (Ecotrin) 81 mg DAILY PO Last administered on 07/24/16 09:34; Start 07/23/16 at 12:00 Atorvastatin Calcium (Lipitor) 10 mg QHS PO Last administered on 07/23/16 20:32 ; Start 07/23/16 at 21:00 Calcium Carbonate/ Glycine (Tums) 500 mg PRN AFTMEALHC PRN PO INDIGESTION; Start 07/23/16 at 12:00 Celecoxib (Celebrex) 200 mg BID PO Last administered on 07/24/16 09:36; Start 07/23/16 at 21:00 Clopidogrel Bisulfate (Plavix) 75 mg DAILYWBKFT PO Last administered on 09:34; Start 07/23/16 at 13:00 Cyanocobalamin (Vitamin B-12) 2,000 mcg DAILY PO Last administered on 07/24/16 09:35; Start 07/23/16 at 12:00 Cyclobenzaprine HCl (Flexeril) 10 mg PRN TID PRN PO MUSCLE SPASMS; Start at 12:00 Docusate Sodium (Colace) 100 mg BID PO ; Start 07/23/16 at 21:00; Status Cancel Famotidine (Pepcid) 20 mg QHS PO Last administered on 07/23/16 20:33; Start 07/23/16 at 21:00 Fish Oil (Fish Oil) 1,000 mg DAILY PO Last administered on 07/24/16 09:36; Start 07/23/16 at 13:00 Furosemide (Lasix) 20 mg DAILY PO Last administered on 07/24/16 09:34; Start at 12:00 Glipizide (Glucotrol) 5 mg BID PO Last administered on 07/24/16 09:35; Start at 21:00 Guaifenesin (Mucinex) 600 mg BID PO Last administered on 07/24/16 09:33; Start 07/23/16 at 21:00 Hydrochlorothiazide (Hydrodiuril) 25 mg DAILY PO Last administered on 07/24/16 09:37; Start 07/23/16 at 12:00 Lactobacillus Acidophilus (Bacid, Luanne-Bid) 2 tab DAILY PO Last administered on 07/24/16 09:33; Start 07/23/16 at 13:00 Lidocaine (Lidoderm) 2 patch DAILY TP Last administered on 07/24/16 09:33; Start 07/23/16 at 13:00 Lisinopril (Prinivil) 20 mg DAILY PO Last administered on 07/23/16 14:27; Start 07/23/16 at 13:00 Lorazepam (Ativan) 0.5 mg PRN Q2HR PRN PO ANXIETY / AGITATION; Start 07/23/16 at 12:00 Lorazepam (Ativan) 1 mg PRN Q2HR PRN PO ANXIETY / AGITATION; Start 07/23/16 at 12:00 Metoclopramide HCl (Reglan) 10 mg QIDACHS PO Last administered on 07/24/16 09: 36; Start 07/23/16 at 16:30 Multivitamins/ Calcium (Thera M Plus) 1 tab DAILY PO Last administered on 09:35; Start 07/23/16 at 13:00 Multivitamins/ Minerals (Ocuvite Lutein) 1 cap DAILY PO Last administered on 09:34; Start 07/23/16 at 13:00 Oxybutynin Chloride (Ditropan) 5 mg [id number] PO Last administered on 07/24/16 09: 37; Start 07/23/16 at 14:00 Oxycodone/ Acetaminophen (Percocet 5/325) 1 tab PRN Q4HRS PRN PO PAIN Last administered on 07/24/16 01:04; Start 07/23/16 at 12:00 Oxycodone/ Acetaminophen (Percocet 7.5/ 325) 1 tab PRN Q6HRS PRN PO PAIN; Start 07/23/16 at 12:30 Oxycodone/ Acetaminophen (Percocet 7.5/ 325) 2 tab PRN Q6HRS PRN PO PAIN; Start 07/23/16 at 12:30 Pantoprazole Sodium (Protonix) 40 mg DAILYAC PO Last administered on 07/24/16 09:34; Start 07/23/16 at 13:00 Polyethylene Glycol (miraLAX PACKET) 17 gm DAILY PO Last administered on 09:31; Start 07/23/16 at 13:00 Potassium Chloride (Klor-Con) 20 meq DAILYWBKFT PO Last administered on 09:35; Start 07/23/16 at 13:00 Quetiapine Fumarate (SEROquel) 25 mg HS PO Last administered on 07/23/16 20:32 ; Start 07/23/16 at 21:00 Simethicone (Gas-X) 160 mg DAILY PO Last administered on 07/24/16 09:35; Start 07/23/16 at 13:00 Comment Review of Relevant I have reviewed the following items elvis (where applicable) has been applied. ETHEL LARES MD Jul 24, 2016 10:14
[2016-07-24 10:51] LABS: OBC FLU VALID
[2016-07-24 11:19] VITALS: BP 91/65
[2016-07-24 14:45] VITALS: BP 109/79
[2016-07-24 19:00] VITALS: BP 114/69
[2016-07-24] MEDS: ATORVASTATIN CALCIUM 10 MG TABLET. PO SCH (20:29)
[2016-07-24] MEDS: FAMOTIDINE 20 MG TABLET. PO SCH (20:29)
[2016-07-24] MEDS: QUEtiapine 25 MG TABLET. PO SCH (20:30)
[2016-07-24 23:00] VITALS: BP 120/58
[2016-07-25 03:00] VITALS: BP 135/74
[2016-07-25 07:00] VITALS: BP 148/87
[2016-07-25] MEDS: IPRATRPIUM/ALBUTEROL 0.5/2.5MG 3 ML NEBU. NEB SCH ×2 (07:15→11:34)
[2016-07-25] MEDS: PANTOPRAZOLE 40 MG TABLET. PO SCH (08:03)
[2016-07-25] MEDS: CLOPIDOGREL BISULFATE 75 MG TABLET PO SCH (08:03)
[2016-07-25] MEDS: METOCLOPRAMIDE 10 MG TABLET PO SCH ×2 (08:03→11:51)
[2016-07-25] MEDS: POTASSIUM CHLORIDE 20 MEQ TABLET.ER. PO SCH (08:03)
[2016-07-25] MEDS: POLYETHYLENE GLYCOL 3350 17 GM PACKET. PO SCH (09:00)
[2016-07-25] MEDS: NICOTINE 21MG PATCH. TD SCH (09:05)
[2016-07-25] MEDS: LIDOCAINE (700MG/PATCH) PATCH. TP SCH (09:06)
[2016-07-25] MEDS: CELECOXIB 200 MG CAPSULE PO SCH (09:06)
[2016-07-25] MEDS: DOCUSATE SODIUM 100 MG CAPSULE PO SCH (09:07)
[2016-07-25] MEDS: AMLODIPINE BESYLATE 5 MG TABLET PO SCH (09:07)
[2016-07-25] MEDS: FUROSEMIDE 20 MG TABLET PO SCH (09:07)
[2016-07-25] MEDS: OXYBUTYNIN CHLORIDE 5 MG TABLET PO SCH (09:07)
[2016-07-25] MEDS: GLIPIZIDE 5 MG TABLET PO SCH (09:07)
[2016-07-25] MEDS: GUAIFENESIN ER 600 MG TABLET.ER PO SCH (09:07)
[2016-07-25] MEDS: MULTIVITAMIN with MINERAL TABLET. PO SCH (09:07)
[2016-07-25] MEDS: LACTOBACILLUS ACIDOPH & BULGAR 1 TABLET. PO SCH (09:08)
[2016-07-25] MEDS: SENNOSIDES/DOCUSATE 8.6/50MG TABLET. PO SCH (09:08)
[2016-07-25] MEDS: OMEGA-3 FATTY ACIDS/FISH OIL 1,000 MG CAPSULE. PO SCH (09:08)
[2016-07-25] MEDS: CYANOCOBALAMIN (VITAMIN B-12) 1,000 MCG TABLET. PO SCH (09:08)
[2016-07-25] MEDS: ASPIRIN ENTERIC COATED 81 MG TABLET.DR. PO SCH (09:08)
[2016-07-25] MEDS: LISINOPRIL 20 MG TABLET PO SCH (09:08)
[2016-07-25] MEDS: RIVAROXABAN 10 MG TABLET. PO SCH (09:09)
[2016-07-25] MEDS: HYDROCHLOROTHIAZIDE 25 MG TABLET PO SCH (09:09)
[2016-07-25] MEDS: SIMETHICONE 80 MG TAB.CHEW PO SCH (09:09)
[2016-07-25] MEDS: MULTIVITAMIN EYE FORMULA CAPSULE. PO SCH (09:09)
[2016-07-25 11:01] VITALS: BP 109/75
--- NOTE | 2016-07-25 11:19 | PDOC ---
Provider Note Provider Note pt did not dc yesterday Decided on HH not SNU Jul done Dc summ done Dw RN Pt seen and examined CHU HUMMEL MD Jul 25, 2016 11:19
== END 2016-07-25 12:00 | disposition home health service (06) | DRG 91 ==
LOC: ER 14:30 → 5 SOUTH 17:21
PROVIDERS: ADMIT Internal Medicine; ATTEND Internal Medicine
DX: G92 Toxic encephalopathy (principal); N17.0 Acute kidney failure with tubular necrosis; E44.0 Moderate protein-calorie malnutrition; E11.9 Type 2 diabetes mellitus without complications; E78.5 Hyperlipidemia, unspecified; E78.00 Pure hypercholesterolemia, unspecified; Z79.899 Other long term (current) drug therapy; T50.905A Adverse effect of unspecified drugs, medicaments and biological substances, initial encounter; F41.9 Anxiety disorder, unspecified; I10 Essential (primary) hypertension; I25.10 Atherosclerotic heart disease of native coronary artery without angina pectoris; J44.9 Chronic obstructive pulmonary disease, unspecified; Z96.653 Presence of artificial knee joint, bilateral; J45.909 Unspecified asthma, uncomplicated; K21.9 Gastro-esophageal reflux disease without esophagitis; N32.81 Overactive bladder; Z85.46 Personal history of malignant neoplasm of prostate; Z87.891 Personal history of nicotine dependence; Z68.25 Body mass index [BMI] 25.0-25.9, adult; Z90.49 Acquired absence of other specified parts of digestive tract; Y92.89 Other specified places as the place of occurrence of the external cause
CPT/HCPCS: 36415; 70450; 71010; 80048; 80076; 81001; 82140; 82550; 82607; 83605; 83690; 83880; 84443; 84484; 85027; 85651; 87804; 93005; 94250; 94640; 96374; J1630; J2310; J3486; J7620; J8597; 92610; 97110; 97116; 97530; 99285-25

== ENCOUNTER → 2018-02-19 | Outpatient (CLI) | payer MEDICARE, BC ==
[~2018-02-19] MED LIST changes: -AMLO5TAB2 PO; +AMLO5TAB7 PO; +BIFI4CAP PO; +CELE-20 PO; -CLOP75TA27 PO; +CLOP75TA57 PO; +DOCU-109 PO; -DOCU-27 PO; -GUAI600T38 PO; +GUAI600T47 PO; +LIDO700A4 TP; +LORA0.5T PO; +LORA1TAB PO; -MELO-156 PO; +MELO7.5T29 PO; +METF500T16 PO; -METF500T4 PO; +METO10TA PO; -OXYC-244 PO; +OXYC-327 PO; +OXYC1TAB7 PO; +POLY17PO29 PO; +POTA20TA82 PO; +QUET25TA PO; +RANI150T2 PO; +RIVA10TA PO; +SIME180C16 PO; -SOLI10TA PO; +SOLI10TA2 PO; -SOLI5TAB PO; +SOLI5TAB2 PO; +VIT1TABL32 PO
--- NOTE | 2018-02-19 11:12 | KCIC ---
MRI Lumbar Spine without contrast History: Previous lumbar surgeries, chronic low back pain, falls, injury Technique: Multiplanar, multi sequential noncontrast MR imaging was performed of the lumbar spine. Contrast: None Comparison: December 07, 2014 Findings: There is again superior height loss of L1. Lumbar vertebral body stature is unchanged. AP alignment is similar, minimal posterior subluxation L2 relative L3 and negligible anterior spondylolisthesis T12-L1. There is advanced degenerative disc disease L2-3 through L4-5, relatively progressed at L2-3 and L3-4 in the interval. There is mild disc desiccation L1-L2 and mild degenerative disc disease at L5-S1. There is new L2-3 and to lesser degree L3-4 and L4-5 endplate edema likely reactive/degenerative in etiology. Conus terminates at L1. There is mild lumbar levoscoliosis. There is minimal left lateral subluxation of L3 relative to L4 and L4 relative to L5. T12-L1: Neural foramina and spinal canal are adequate. There is mild facet degenerative change and buckling of the ligamentum flavum. L1-L2: Spinal canal and neural foramina are adequate. There is minimal buckling of the ligamentum flavum and facet degenerative change. L2-L3: There is again right laminectomy defect. There is facet degenerative change. There is minimal disc osteophyte complex. Spinal canal is overall adequate. There is somewhat increased mild to moderate posterior narrowing of the right neural foramen, left neural foramen overall adequate. L3-L4: There again has been posterior decompression. There is facet hypertrophic change. Signal change along the posterior annular margin is similar, previously demonstrated component of enhancing fibrosis adjacent to margin of shallow protrusion in the lateral recesses. There is minimal narrowing of the far left lateral recess. There is moderate narrowing of the right neural foramen although somewhat less prominent more inferiorly. There is somewhat increased moderate to severe narrowing of the left neural foramen primarily from posteriorly by ligamentum flavum, also degree of inferior narrowing by disc osteophyte complex and bulge/protrusion. L4-L5: There is bilateral facet degenerative change. There is disc osteophyte complex and bulge. There is mild narrowing of the far lateral recesses as seen previously, central canal adequate. There is again moderate to severe narrowing of the left neural foramen by disc osteophyte complex and facet, somewhat lesser degree narrowing on the right overall similar. L5-S1: Spinal canal and neural foramina are adequate. There is again bilateral facet degenerative change, some fluid in the facet articulations. Impression: 1. There is multilevel fairly advanced degenerative disc disease L2-3 through L4-5, progressed in the interval since 2015 at L2-3 and L3-4. There is new endplate edema greatest at L2-3 probably reactive/degenerative in etiology. There is no new significant lumbar spinal stenosis, similar minimal narrowing of the far lateral recesses at L4-5 and on the left at L3-4. 2. There is neural foramina compromise as stated, moderate to severe narrowing on the left at L3-4 and L4-5 and to a somewhat lesser degree on the right at these levels. There is [id number] narrowing on the right at L2-3. 3. There is old L1 compression deformity, no evidence of recent compression fracture. Electronically signed by: Milton Suh MD (02/19/2018 11:08 AM) [id number]
== END | disposition home or self-care (01) ==
LOC: KCIC MRI 09:55
PROVIDERS: ATTEND Family Medicine
DX: M51.36 Other intervertebral disc degeneration, lumbar region (principal); M43.8X6 Other specified deforming dorsopathies, lumbar region; M48.061 Spinal stenosis, lumbar region without neurogenic claudication; M25.78 Osteophyte, vertebrae; R60.0 Localized edema; I10 Essential (primary) hypertension; E11.9 Type 2 diabetes mellitus without complications; E78.5 Hyperlipidemia, unspecified; E78.00 Pure hypercholesterolemia, unspecified; I25.10 Atherosclerotic heart disease of native coronary artery without angina pectoris; K21.9 Gastro-esophageal reflux disease without esophagitis; Z96.653 Presence of artificial knee joint, bilateral; Z87.891 Personal history of nicotine dependence; Z85.46 Personal history of malignant neoplasm of prostate; Z90.49 Acquired absence of other specified parts of digestive tract
CPT/HCPCS: 72148

== ENCOUNTER → 2018-07-01 | Outpatient (CLI) | payer MEDICARE, BC ==
[~2018-07-01] MED LIST changes: +AMLO5TAB10 PO; -AMLO5TAB7 PO; +DICY20TA3 PO; +FLUO10CA7 PO; +HYDR-2145 PO; -HYDR25TA9 PO; +IBUP-1027 PO; -OXYC-327 PO; +OXYC1TAB19 PO
--- NOTE | 2018-07-01 17:46 | PAIN ---
DATE OF SERVICE: 07/01/2018 PROGRESS NOTE FOR PAIN CLINIC DIAGNOSES: Lumbar degenerative disk disease, lumbar spinal stenosis, post-lumbar laminectomy syndrome and lumbar and lumbosacral spondylosis. HISTORY OF PRESENT ILLNESS: The patient is a 72-year-old male who returns for followup status post lumbar decompressive surgery in 2013. The patient had two operations and did fairly well with this, but has had pain returned in the low back itself right essentially equal to left since that time. The patient reports the pain is sharp, stabbing, constant, throbbing, shooting, changes during the day, worse with any activity, walking, standing, change in positions, bending forward, even lifting a pot of coffee causes the pain to be increase in his back. The patient reports it awakens him from sleep at least 2-3 times at night, does not affect his bowel or bladder control, but does affect his ability to walk. He is not using any assistive devices, however. The patient is taking ibuprofen, which helps, he reports about 20%. He has had epidural injections, physical therapy since the surgery and does exercises currently at home as well. No formal physical therapy since his last surgery, but doing stretching on his own at home. The patient reports no loss of motor function, no significant radiation to lower extremities, but significant pain in the low back, especially with extension and lifting. PAST MEDICAL HISTORY: Significant for hearing loss, cataracts, hypertension, carotid artery stenosis, hypercholesterolemia, acid reflux, depression, arthritis. PREVIOUS SURGERY: Include tonsillectomy, cholecystectomy, right carotid artery endarterectomy, left rotator cuff repair, left knee scope, bilateral knee replacements in 2017, prostatectomy, penile implants and lumbar laminectomies as noted. CURRENT MEDICATIONS: The patient's current medication list includes lovastatin, amlodipine, omeprazole, clopidogrel, VESIcare, lisinopril, Lasix, Xanax, fluoxetine, dicyclomine, glipizide and metoclopramide. The patient was also taking [id number] ibuprofen and fish oil as well as vitamin B12 and multivitamins and Zantac as needed. FAMILY HISTORY: Significant for heart attacks and strokes. SOCIAL HISTORY: The patient drinks alcohol about twice a week, uses e-cigarettes, smoke regular cigarettes for about 40 years. He is , lives with his spouse. He is currently retired and lives locally in [place], [place]. REVIEW OF SYSTEMS: The patient's review of systems is positive for those items mentioned in history of present illness. All systems reviewed and otherwise negative. It is complete, full and well documented on the patient's chart. PHYSICAL EXAMINATION: VITAL SIGNS: The patient's blood pressure 156/99, pulse is 94, respirations 20, temperature is 98.4 degrees Fahrenheit, height is 5 feet 8 inches and weight is 196 pounds. GENERAL: The patient is awake, alert, oriented, appropriate, very pleasant demeanor. HEENT: Head shows normocephalic, atraumatic. Extraocular movements are intact and symmetrical. Oral cavity: Mucous membranes moist and pink. Dentition is intact. NECK: Shows anterior throat supple without palpable lymphadenopathy noted. Swallow reflex symmetrical. CHEST: Shows normal with inspection. Breath sounds clear to auscultation bilaterally. HEART: Shows S1, S2 clear. No murmurs auscultated. ABDOMEN: Soft, nontender, nondistended. No palpable organomegaly is noted. No rebound or guarding demonstrated. BACK: Shows spine grossly in the midline. Normal appearing thoracic kyphosis, some minor flattening of lumbar lordotic curvature, previously well-healed surgical scars noted in the lumbar distribution. Lumbar paraspinous muscle shows symmetrical on inspection, with palpation and some moderate tenderness diffusely throughout the upper, middle and lower distribution of paraspinous muscles, right equal to left. The patient has good rotational motion both laterally greater than 10 degrees right and left with extension 10 degrees with significant pain in the low back bilaterally without specific radiation. It is decreased with forward flexion at 45 degrees, the patient performed without difficulty. EXTREMITIES: The patient's lower extremities show deep tendon reflexes 1+ in the patellar and tendo-calcaneus tendons. Motor exam is strong with dorsiflexion, extension, quadriceps and hamstring flexion rated 5/5 and equal. Peripheral pulses are 1+ posterior tibial and dorsalis pedis pulses. No peripheral edema is noted. Lower extremities are warm and dry to touch, equal in color and appearance. SKIN: Warm and dry. No edema. No sores, rashes or bruising. PLAN: Options were discussed with the patient. The patient's old chart was reviewed as his current medication regimen updated. Current review of systems updated today as well. We will check with the patient's prescribing physician to hold his Plavix for 7 days prior to bilateral facet joint injections at L4-L5 and L5-S1 levels as the patient has significant axial pain and especially with axial loading with extension and significant pain in the low back itself without specific radiation to lower extremities in radicular fashion. The patient will wait to hear from his primary physician regarding his Plavix. Will then have him hold this for 7 days if deemed appropriate and safe and have him return for bilateral L4-L5 and L5-S1 facet joint injection at that time. BERNARDO HUANG MD DR: SONIA/chidi JOB#: [id number] / [id number]
== END | disposition home or self-care (01) ==
LOC: PNCL 09:42
PROVIDERS: ATTEND Anesthesiology
DX: M51.36 Other intervertebral disc degeneration, lumbar region (principal); M48.061 Spinal stenosis, lumbar region without neurogenic claudication; M47.897 Other spondylosis, lumbosacral region; M96.1 Postlaminectomy syndrome, not elsewhere classified
CPT/HCPCS: G0463

== ENCOUNTER → 2018-07-09 | Outpatient (CLI) | payer MEDICARE, BC ==
[~2018-07-09] MED LIST changes: +BUPIVACAINE MPF 0.25% 10 ML VIAL. ONE; +IOHEXOL 180 MG/ML 10 ML VIAL. ONE; +methylPREDNISolone ACETATE 40 MG/ML VIAL. ONE; +methylPREDNISolone ACETATE 80 MG/ML VIAL. ONE
--- NOTE | 2018-07-09 11:06 | PAIN ---
DATE OF SERVICE: 07/09/2018 PROGRESS NOTE FOR PAIN CLINIC DIAGNOSES: Lumbar degenerative disk disease with lumbar spinal stenosis and lumbar post-laminectomy syndrome with lumbar and lumbosacral spondylosis. HISTORY OF PRESENT ILLNESS: The patient is a 72-year-old male who returns for followup status post initial evaluation and preauthorization to be off his Plavix, has been off this for a week now, reports still significant pain in low back, left essentially equal to right, describes it as 8 on a scale of 10 at its worst, 5 on average and 3 at its least and is dull, aching, sharp, worse with standing, walking, but also increased with sitting for more than about 10 minutes. The patient reports it awakens him from sleep about every 6 hours, right and left side, he cannot get comfortable because the pain in the back itself. No significant radiation into the lower extremities, but significant pain across the low back with activity. The patient reports he has decreased his distance walking and his activities at home had been limited as well because of the pain. PHYSICAL EXAMINATION: VITAL SIGNS: The patient's blood pressure 129/85, pulse 84, respirations 16, temperature 98.1 degrees Fahrenheit, height is 5 feet 8 inches, weight is 194 pounds. GENERAL: The patient is awake, alert, oriented, appropriate, very pleasant demeanor. HEENT: Head shows normocephalic, atraumatic. Extraocular movements are intact and symmetrical. Oral cavity: Mucous membranes moist and pink. Dentition is intact. NECK: Shows anterior throat supple without palpable lymphadenopathy noted. Swallow reflex symmetrical. CHEST: Shows normal with inspection. Breath sounds clear to auscultation bilaterally. HEART: Shows S1, S2 clear. No murmurs auscultated. ABDOMEN: Soft, nontender, nondistended. No palpable organomegaly is noted. No rebound or guarding demonstrated. BACK: The patient's back shows spine grossly in the midline, slight exaggeration of thoracic kyphosis and minor flattening of lumbar lordotic curvature. A well-healed surgical scar noted in the lumbar distribution. Lumbar paraspinous muscle shows symmetrical on inspection, with palpation shows some moderate tenderness in middle and lower distribution of paraspinous musculature bilaterally, but symmetrical without evidence of atrophy or hypertrophy. No tenderness over the spinous processes, sacrum or sacroiliac regions. The patient does show increased pain with extension of the lumbar spine and axial loading into low back as well as with right and left lateral rotation past 10 degrees with some moderate tenderness to each respectively. No significant tenderness with forward flexion, which he points to 45 degrees without difficulty. LOWER EXTREMITIES: Lower extremities show deep tendon reflexes at 1+ in the patellar and tendo calcaneus tendons. Motor exam is strong with 5/5 dorsiflexion, extension, quadriceps and hamstring flexion equal. Peripheral pulses are 1+ posterior tibial. No peripheral edema is noted. PLAN: Options were discussed with the patient. The patient's old chart was reviewed as his current medication regimen updated. Current review of systems updated today as well. We will proceed with bilateral L4-L5 and L5-S1 facet joint injections today with fluoroscopic guidance. Risks were again discussed including, but not limited to bleeding, infection, possibility of epidural hematoma, subsequent neurologic compromise, dural punctures, headaches, spinal cord and/or nerve damage, side effects of steroid medication as well as poor results regarding pain control. The patient understands and wished to proceed. The patient will return to clinic in approximately 2 weeks for followup. He was counseled to return appointment, activity level and side effects to be aware of. DIAGNOSES: Lumbar and lumbosacral spondylosis. PROCEDURES: Bilateral L4-L5 and L5-S1 facet joint injections using C-arm fluoroscopic guidance under sterile prep and drape using local anesthetic. MEDICATION INJECTED: A total of 120 mg of Depo-Medrol plus total of 4 mL of 0.25% bupivacaine and a total of 2 mL of Isovue for contrast. CONDITION AT DISCHARGE: Stable. The patient tolerated the procedure well and had no complications. BERNARDO HUANG MD DR: SONIA/chidi JOB#: [id number] / [id number]
== END | disposition home or self-care (01) ==
LOC: PNCL 09:02
PROVIDERS: ATTEND Anesthesiology
DX: M47.817 Spondylosis without myelopathy or radiculopathy, lumbosacral region (principal); M51.36 Other intervertebral disc degeneration, lumbar region; M48.061 Spinal stenosis, lumbar region without neurogenic claudication; M96.1 Postlaminectomy syndrome, not elsewhere classified
CPT/HCPCS: 64493; 64494; J1030; J1040; J3490; Q9965

== ENCOUNTER → 2018-07-30 | Outpatient (CLI) | payer MEDICARE, BC ==
--- NOTE | 2018-07-31 00:39 | PAIN ---
DATE OF SERVICE: 07/30/2018 DIAGNOSES: Lumbar post-laminectomy syndrome with lumbar spinal stenosis, degenerative disk disease, lumbar and lumbosacral spondylosis. HISTORY OF PRESENT ILLNESS: The patient is a 72-year-old male who returns for followup status post bilateral lumbar facet joint injection. The patient reports about 50% improvement after the injections, still lasting to this day. This was on 07/09/2018. The patient reports the pain is becoming more noticeable, more on the right than the left, but is present bilaterally, worse with bending, stooping, extending the back, especially. The patient reports it is aching, sharp pain, sometimes it is constant, not radiating in the lower extremities, but across the low back, again worse on the right than the left with rotational movement, lifting, bending, and straightening of the low back. The patient reports an 8 on a scale of 10 at its worst, 3 on average, 2 at its least and is a 3 today. The patient reports it is better at night, has been sleeping better. Did increase in distance walking and doing activities around the house. He has been working on his car and lifting some items that have been over 50 pounds, which has increased the pain as well. The patient reports no new motor or sensory deficits; however, no new bowel or bladder incontinence or other complaints. PHYSICAL EXAMINATION: VITAL SIGNS: The patient's blood pressure 129/80, pulse 83, respirations 18, temperature 98.1 degrees Fahrenheit, height is 5 feet 8 inches, weight is 193 pounds. GENERAL: The patient is awake, alert, oriented, appropriate, very pleasant demeanor. HEENT: Head shows normocephalic, atraumatic. Extraocular movements are intact and symmetrical. Oral cavity: Mucous membranes moist and pink. Dentition is intact. NECK: Shows anterior throat supple without palpable lymphadenopathy noted. Swallow reflex symmetrical. CHEST: Shows normal on inspection. Breath sounds are clear to auscultation bilaterally. HEART: Shows S1, S2 clear. No murmurs auscultated. ABDOMEN: Soft, nontender, nondistended. No palpable organomegaly is noted. No rebound or guarding demonstrated. BACK: Shows spine grossly in the midline. Normal appearing thoracic kyphosis and minor flattening of lumbar lordotic curvature. Well-healed surgical scars again noted. EXTREMITIES: The patient's lower extremities show deep tendon reflexes at 1+ in the patellar and tendo calcaneus tendons. Motor exam is strong with dorsiflexion, extension, quadriceps and hamstring flexion rated at 5/5 and equal bilaterally. Peripheral pulses are 1+ posterior tibia. No peripheral edema is noted bilaterally. Options were discussed with the patient. The patient's old chart was reviewed as his current medication regimen updated. Current review of systems updated today as well. We will proceed with bilateral L4-L5 and L5-S1 lumbar facet joint injections with fluoroscopic guidance. Risks were again discussed including, but not limited to bleeding, infection, possibility of epidural hematoma, subsequent neurologic compromise, dural puncture, headaches, spinal cord and/or nerve damage, side effects of steroid medication and poor results regarding pain control. The patient understands and wished to proceed. The patient will return to clinic in approximately 2 weeks for followup. He was counseled as to return appointment, activity level and side effects to be aware of. DIAGNOSIS: Lumbar and lumbosacral spondylosis. PROCEDURE: Bilateral L4-L5 and L5-S1 facet joint injections using C-arm fluoroscopic guidance under sterile prep and drape using local anesthetic. MEDICATION INJECTED: A total of 120 mg of Depo-Medrol plus a total of 4 mL of 0.25% bupivacaine and total of 2 mL of Isovue for contrast. CONDITION AT DISCHARGE: Stable. The patient tolerated procedure well, had no complications. BERNARDO HUANG MD DR: SONIA/chidi JOB#: [id number] / [id number]
== END | disposition home or self-care (01) ==
LOC: PNCL 09:15
PROVIDERS: ATTEND Anesthesiology
DX: M47.817 Spondylosis without myelopathy or radiculopathy, lumbosacral region (principal); M51.36 Other intervertebral disc degeneration, lumbar region; M48.061 Spinal stenosis, lumbar region without neurogenic claudication; M96.1 Postlaminectomy syndrome, not elsewhere classified
CPT/HCPCS: 64493; 64494; J1030; J1040; J3490; Q9965; 64490; 64491; 64633; 64634

== ENCOUNTER → 2018-08-26 | Outpatient (CLI) | payer MEDICARE, BC ==
[~2018-08-26] MED LIST changes: -IOHEXOL 180 MG/ML 10 ML VIAL. ONE; +LIDOCAINE 2% PF 5 ML VIAL. ONE
--- NOTE | 2018-08-27 03:36 | PAIN ---
DATE OF SERVICE: 08/26/2018 DIAGNOSES: Lumbar and lumbosacral spondylosis, lumbar degenerative disk disease, lumbar spinal stenosis and post-lumbar laminectomy syndrome. HISTORY OF PRESENT ILLNESS: The patient is a 72-year-old male who returns for followup status post bilateral facet joint injections since he has had 2 sets of these now since June with good improvement each time, about 80% improvement initially, now down about 50% improved in the low back itself. The patient reports still some pain in the low back, slightly worse on the right than the left, but present bilaterally. The patient reports that while he was doing better, it is only for about a few days to a week. The pain was significantly improved by 80%, but the pain returned, but during that time, it was significantly better. He was increasing distance walking, doing activities at home, traveling, household activities as well. The patient reports the pain now has returned in the low back itself without significant radiation to lower extremities. The patient reports it is aching, sharp, severe shooting across the back, rated 10 on a scale of 10 at its worst, 5 on average and 3 at its least and is a 5 today. The patient reports it is worse with standing or even prolonged sitting, wakes him from sleep about every 5-6 hours. He can easily reposition and get back to sleep. The patient reports no new motor or sensory deficits or other complaints. PHYSICAL EXAMINATION: VITAL SIGNS: The patient's blood pressure 115/74, pulse 85, respirations 16, temperature 97.9 degrees Fahrenheit. Height is 5 feet 8 inches, weight is 192 pounds. GENERAL: The patient is awake, alert, oriented, appropriate, very pleasant demeanor. HEENT: Head is normocephalic, atraumatic. Extraocular movements are intact and symmetrical. Oral cavity, mucous membranes are moist and pink. Dentition is intact. NECK: Shows anterior throat supple without palpable lymphadenopathy noted. Swallow reflex is symmetrical. CHEST: Shows normal on inspection. Breath sounds clear to auscultation bilaterally. HEART: Shows S1, S2 clear. No murmurs auscultated. ABDOMEN: Obese with soft, nontender, nondistended. No palpable organomegaly is noted. No rebound or guarding demonstrated. BACK: Shows spine grossly in the midline. Slight exaggeration of thoracic kyphosis with significant flattening of lumbar lordotic curvature with well-healed surgical scar noted. Lumbar paraspinous muscle shows symmetrical on inspection, on palpation shows some moderate tenderness diffusely bilaterally, but only diffusely without radiation. The patient has good rotational motion with some moderate tenderness both right and left lateral rotation greater than 10 degrees as well as extension and axial loading, with significant pain and tenderness in the low back only. This is decreased with forward flexion at 45 degrees, was performed without difficulty. EXTREMITIES: The patient's lower extremities show deep tendon reflexes at 1+/4 in the patellar and tendo calcaneus tendons are equal. Motor exam is 5/5 with dorsiflexion, extension, quadriceps and hamstring flexion strong and equal. Peripheral pulses are 1+ posterior tibial. No peripheral edema is noted bilaterally. Options were discussed with the patient. The patient's old chart was reviewed as his current medication regimen updated. Current review of systems updated today as well. As the patient has had 2 sets of facet joint injections with good results for a limited period of time and has been off his Plavix now for 8 days, we elected to proceed with radiofrequency ablation of the bilateral L4-L5 and L5-S1 medial branches. Risks were again discussed including, but not limited to bleeding, infection, possibility of epidural hematoma, subsequent neurologic compromise, dural puncture, headaches, spinal cord and/or nerve damage, side effects of steroid medication and poor results regarding pain control as well as potential thermal injury to the surrounding nerves as well as motor damage and permanent damage of the motor nerves. The patient understands and wishes to proceed. The patient will return to clinic in approximately 3 weeks for followup. We will restart his Plavix tomorrow, 08/27/2018. The patient was counseled as to activity level as well as side effects to be aware of. DIAGNOSES: Bilateral lumbar degenerative disk disease with spinal stenosis, post-lumbar laminectomy syndrome and bilateral lumbar and lumbosacral spondylosis. PROCEDURES: Bilateral L4-L5 and L5-S1 medial branch radiofrequency ablation on her C-arm fluoroscopic guidance under sterile prep and drape using local anesthetic. MEDICATION INJECTED: A total of 120 mg Depo-Medrol, plus total of 6 mL of 0.25% bupivacaine after radiofrequency ablation, total of 6 mL of 2% lidocaine after motor testing, but prior to radiofrequency ablation, 1 mL at each level after negative aspiration with each of the injections. Please see radiofrequency flow sheet for locations, levels, times, temperatures, impedances, etc. CONDITION AT DISCHARGE: Stable. The patient tolerated the procedure well and was discharged on his own power without any immediate complications apparent. BERNARDO HUANG MD DR: SONIA/chidi JOB#: [id number] / [id number]
== END | disposition home or self-care (01) ==
LOC: PNCL 10:57
PROVIDERS: ATTEND Anesthesiology
DX: M47.817 Spondylosis without myelopathy or radiculopathy, lumbosacral region (principal); M48.061 Spinal stenosis, lumbar region without neurogenic claudication; M51.36 Other intervertebral disc degeneration, lumbar region; M96.1 Postlaminectomy syndrome, not elsewhere classified
CPT/HCPCS: 64635; 64636; J1030; J1040; J2001; J3490

== ENCOUNTER → 2018-09-23 | Outpatient (CLI) | payer MEDICARE, BC ==
[~2018-09-23] MED LIST changes: -BUPIVACAINE MPF 0.25% 10 ML VIAL. ONE; -LIDOCAINE 2% PF 5 ML VIAL. ONE; -methylPREDNISolone ACETATE 40 MG/ML VIAL. ONE; -methylPREDNISolone ACETATE 80 MG/ML VIAL. ONE
--- NOTE | 2018-09-23 23:27 | PAIN ---
DATE OF SERVICE: 09/23/2018 PROGRESS NOTE FOR PAIN CLINIC DIAGNOSES: Lumbar radiculopathy with lumbar degenerative disk disease, lumbar spinal stenosis and post-laminectomy syndrome and spondylosis. HISTORY OF PRESENT ILLNESS: The patient is a 72-year-old male who returns for followup status post radiofrequency ablation on 08/26/2018. The patient reports that he did well initially and his back is doing better, but his right leg has significant pain now, which is worsening, radiating to the right anterior thigh, medial thigh, into the groin at times and the medial knee on the right side as well as across the low back. The patient reports he has some sharp stabbing pain on the right side, which is returning and the pain was decreased in the back, the left side is doing quite well, but the right side is still with some significant pain radiating to the right leg as described, which is fairly unusual for him. The patient reports it is waking him from sleep occasionally. He describes the pain as stabbing, sharp, shooting, on the right side. The patient describes it as a 7 on a scale of 10 at its worst, 5 on average, 2 at its least over the last week and is a 5 today. When he is sitting or lying down, the pain is generally pretty well controlled. When he is up and walking and standing, it is beginning to radiate into the right groin, right anterior thigh, medial thigh, medial knee on the right side. The patient reports no new motor or sensory deficits, no new bowel or bladder incontinence. PHYSICAL EXAMINATION: VITAL SIGNS: The patient's blood pressure is 104/54, pulse 60, respirations 16, temperature 98.4 degrees Fahrenheit. Height is 5 feet 8 inches, weight is 187 pounds. GENERAL: The patient is awake, alert, oriented, appropriate, very pleasant demeanor. HEENT: Head shows normocephalic, atraumatic. Extraocular movements are intact and symmetrical. Oral cavity: Mucous membranes moist and pink. Dentition is intact. NECK: Shows anterior throat supple without palpable lymphadenopathy noted. Swallow reflex symmetrical. CHEST: Shows normal on inspection. Breath sounds are clear to auscultation bilaterally. HEART: Shows S1, S2 clear. No murmurs auscultated. ABDOMEN: Soft, nontender, nondistended. No palpable organomegaly is noted. No rebound or guarding demonstrated. BACK: Shows spine grossly in the midline. Normal appearing thoracic kyphosis and flattening of lumbar lordotic curvature with well-healed surgical scar noted. Lumbar paraspinous muscle shows diffusely tender, but only mildly in the middle and lower distribution of paraspinous muscles bilaterally. EXTREMITIES: Lower extremities show deep tendon reflexes 1+ in the patellar and tendo calcaneus tendons. Motor exam is 5/5 with dorsiflexion and extension. Peripheral pulses are 1+ posterior tibia. No peripheral edema is noted. Options were discussed with the patient. The patient's old chart was reviewed as his current medication regimen updated. Current review of systems updated today as well. As his back is doing somewhat better and now with some radicular pain, which is much more prevalent in the right lower extremity and essentially at L2-L3 dermatomal distribution, which is similar to previous surgeries he had on the right side based on MRI scan from February 2018, we discussed the possibility of a transforaminal injection on the right at L2-L3. The patient will hold his Plavix once again and this has been cleared with his primary physician to do so and have him return in 7 days. We will plan on right-sided L2-L3 transforaminal lumbar injection at that time. The patient was given refill for Percocet 10 mg with instructions and side effects to be aware of discussed as well and will follow up as scheduled. BERNARDO HUANG MD DR: SONIA/chidi JOB#: [id number] / [id number]
== END | disposition home or self-care (01) ==
LOC: PNCL 10:42
PROVIDERS: ATTEND Anesthesiology
DX: M51.16 Intervertebral disc disorders with radiculopathy, lumbar region (principal); M48.061 Spinal stenosis, lumbar region without neurogenic claudication; M96.1 Postlaminectomy syndrome, not elsewhere classified; M47.26 Other spondylosis with radiculopathy, lumbar region
CPT/HCPCS: G0463

== ENCOUNTER → 2018-10-02 | Outpatient (CLI) | payer MEDICARE, BC ==
[~2018-10-02] MED LIST changes: +BUPIVACAINE MPF 0.25% 10 ML VIAL. ONE; +IOHEXOL 180 MG/ML 10 ML VIAL. ONE; +methylPREDNISolone ACETATE 80 MG/ML VIAL. ONE
--- NOTE | 2018-10-02 19:35 | PAIN ---
DATE OF SERVICE: 10/02/2018 DIAGNOSES: Lumbar degenerative disk disease with lumbar spinal stenosis, post-lumbar laminectomy syndrome, spondylosis and lumbar radiculopathy. HISTORY OF PRESENT ILLNESS: The patient is a 72-year-old male who returns for followup status post bilateral radiofrequency ablation as well as facet joint injections. The patient was still with some significant pain in the right leg, pain in the anterior thigh and groin with walking, standing, change in positions. The patient reports it is a 7 on a scale of 10 at its worst, 3 on average, 2 at its least, radiating, aching and dull in quality, worse in the low back into the right side. The patient reports the radiofrequency helped about 50%, but the pain is still significant on the right side with radiating pain in the right leg. The patient reports no new motor or sensory deficits, no new bowel or bladder incontinence, worse with walking and standing; better with sitting and lying down, does not awaken him from sleep at night and is worse in the morning and with mowing grass. PHYSICAL EXAMINATION: VITAL SIGNS: Today, the patient's blood pressure 108/76, pulse 96, respirations 18, temperature 98.1 degrees Fahrenheit. Height is 5 feet 8 inches, weighs 186 pounds. GENERAL: The patient is awake, alert, oriented, appropriate, very pleasant demeanor. HEENT: Head shows normocephalic, atraumatic. Extraocular muscles are intact and symmetrical. Oral cavity: Mucous membranes moist and pink. Dentition is intact. NECK: Shows anterior throat supple without palpable lymphadenopathy noted. Swallow reflex is symmetrical. CHEST: Shows normal on inspection. Breath sounds clear to auscultation bilaterally. HEART: Shows S1, S2 clear. No murmurs auscultated. ABDOMEN: Soft, nontender, nondistended. No palpable organomegaly is noted. No rebound or guarding demonstrated. BACK: Shows spine grossly in the midline. Normal appearing thoracic kyphosis and lumbar lordotic curvature slightly flattened with well-healed surgical scar in the midline. Lumbar paraspinous musculature shows symmetrical on inspection and palpation shows some moderate tenderness diffusely bilaterally without radiation. The patient has good rotational motion with some minor tenderness with extension, but not with forward flexion right and left lateral rotation that is performed at 10 degrees without pain reported. EXTREMITIES: The patient's lower extremities show deep tendon reflexes 1+ in the patellar and tendo calcaneus tendons. Motor exam is strong with 5/5 dorsiflexion, extension, quadriceps and hamstring flexion equal. Peripheral pulses are 1+ posterior tibial. No peripheral edema is noted bilaterally. Options were discussed with the patient. The patient's old chart was reviewed as his current medication regimen and updated. Current review of systems is updated today as well. We will proceed with a right-sided L2-L3, left transforaminal injection today with fluoroscopic guidance. Risks were again discussed including, but not limited to bleeding, infection, possibility of epidural hematoma, subsequent neurologic compromise, dural puncture, headaches, spinal cord and/or nerve damage, side effects of steroid medication and potential injection of vertebral artery at that level and permanent ischemic damage as well as poor results regarding pain control. The patient understands and wished to proceed. The patient will return to clinic in approximately two weeks for followup, was counseled on return appointment, activity level and side effects to be aware of. DIAGNOSES: Lumbar radiculopathy with lumbar post-laminectomy syndrome, spinal stenosis, degenerative disk disease as well as spondylosis. PROCEDURES: Right L2-L3 transforaminal epidural injection using C-arm fluoroscopic guidance under sterile prep and drape using local anesthetic. MEDICATION INJECTED: A total of 80 mg Depo-Medrol plus 2 mL of 0.25% bupivacaine and 1.5 mL of contrast. CONDITION AT DISCHARGE: Stable. The patient tolerated procedure well, had no complications. BERNARDO HUANG MD DR: SONIA/chidi JOB#: [id number] / [id number]
== END | disposition home or self-care (01) ==
LOC: PNCL 07:39
PROVIDERS: ATTEND Anesthesiology
DX: M51.16 Intervertebral disc disorders with radiculopathy, lumbar region (principal); M48.061 Spinal stenosis, lumbar region without neurogenic claudication; M96.1 Postlaminectomy syndrome, not elsewhere classified; M47.26 Other spondylosis with radiculopathy, lumbar region
CPT/HCPCS: 64483; J1040; J3490; Q9965

== ENCOUNTER → 2018-10-16 | Outpatient (CLI) | payer MEDICARE, BC ==
[~2018-10-16] MED LIST changes: -BUPIVACAINE MPF 0.25% 10 ML VIAL. ONE; -IOHEXOL 180 MG/ML 10 ML VIAL. ONE; -methylPREDNISolone ACETATE 80 MG/ML VIAL. ONE
--- NOTE | 2018-10-16 22:54 | PAIN ---
DATE OF SERVICE: 10/16/2018 PROGRESS NOTE FOR PAIN CLINIC: DIAGNOSES: Lumbar radiculopathy with lumbar degenerative disk disease, lumbar spinal stenosis, post-lumbar laminectomy syndrome and lumbar spondylosis. HISTORY OF PRESENT ILLNESS: The patient is a 72-year-old male who returns for followup status post right-sided L2-L3 transforaminal injection on 10/02/2018. The patient reports after about a day, the pain decreased significantly and is about 90% improved overall. The patient reports it continues to be 90% improved. He is very pleased with his progress. He has been increasing his activity with greater ease and comfort, walking greater distances, doing work activities, household activities, traveling activities, sitting better, sleeping better at night. The patient reports the pain is not returning and the right leg feels much better as does his low back. The patient reports it was a 9 on a scale of 10 the day after injection. Since then, it has been 1 and is a 1/10 today. The patient reports it is aching and dull at times in the back, but again has been increasing his activity with greater ease and comfort, doing pretty much whatever he feels like doing without significant pain reported. The patient is very pleased. Reports no new motor or sensory deficits, no new bowel or bladder incontinence or other complaints. PHYSICAL EXAMINATION: VITAL SIGNS: The patient's blood pressure 128/78, pulse 91, respirations 18, temperature 98.2 degrees Fahrenheit, height is 5 feet 8 inches, weighs 183 pounds. GENERAL: The patient is awake, alert, oriented, appropriate, very pleasant demeanor. HEENT: Head shows normocephalic, atraumatic. Extraocular movements are intact and symmetrical. Oral cavity: Mucous membranes moist and pink. Dentition is intact. NECK: Shows anterior throat supple without palpable lymphadenopathy noted. Swallow reflex is symmetrical. CHEST: Shows normal on inspection. Breath sounds clear to auscultation bilaterally. HEART: Shows S1, S2 clear. No murmurs auscultated. ABDOMEN: Soft, nontender, nondistended. No palpable organomegaly is noted. No rebound or guarding demonstrated. BACK: The patient's back shows spine grossly in the midline. Normal appearing lumbar lordotic curvature with well-healed surgical scar, with palpation shows some moderate tenderness diffusely, but only moderately in the low lumbar distribution, more on the right than the left, but again supple without trigger points, without atrophy, hypertrophy and without radiation. The patient has good rotational motion of lumbar spine, both laterally as well as extension and flexion, some tenderness with extension, but only very mildly in the low back on the right and not with forward flexion, right and left lateral rotation. EXTREMITIES: The patient's lower extremities show deep tendon reflexes 1+ in the patellar and tendo-calcaneus tendons. Motor exam is strong with 5/5 dorsiflexion, extension, quadriceps and hamstring flexion and equal. Peripheral pulses are 1+ posterior tibia. No peripheral edema is noted bilaterally. Options were discussed with the patient. The patient's old chart was reviewed as his current medication regimen updated. Current review of systems updated today as well. We will hold on any further injections at this time as the patient is doing quite a bit better. I would like to increase his activity, encouraged him to do this with caution, but to increase it as tolerated and the patient will return to clinic at this time on as needed basis. BERNARDO HUANG MD DR: SONIA/chidi JOB#: [id number] / [id number]
== END | disposition home or self-care (01) ==
LOC: PNCL 08:11
PROVIDERS: ATTEND Anesthesiology
DX: M51.16 Intervertebral disc disorders with radiculopathy, lumbar region (principal); M48.061 Spinal stenosis, lumbar region without neurogenic claudication; M96.1 Postlaminectomy syndrome, not elsewhere classified; M47.26 Other spondylosis with radiculopathy, lumbar region
CPT/HCPCS: G0463

== ENCOUNTER → 2019-01-27 | Outpatient (CLI) | payer MEDICARE, BC ==
[~2019-01-27] MED LIST changes: +BUPIVACAINE MPF 0.25% 10 ML VIAL. ONE; +IOHEXOL 180 MG/ML 10 ML VIAL. ONE; +methylPREDNISolone ACETATE 40 MG/ML VIAL. ONE; +methylPREDNISolone ACETATE 80 MG/ML VIAL. ONE
--- NOTE | 2019-01-28 04:31 | PAIN ---
DATE OF SERVICE: 01/27/2019 PROGRESS NOTE FOR PAIN CLINIC DIAGNOSES: Lumbar radiculopathy with lumbar spinal stenosis, lumbar degenerative disk disease and post-lumbar laminectomy syndrome. HISTORY OF PRESENT ILLNESS: The patient is a 73-year-old male who returns for followup status post lumbar transforaminal injection at L2-L3 on the right with about 90% improvement of his back in September and the patient did very well with pain returning now over the past 1-2 weeks on the right lower extremity, anterior thigh, anterior medial thigh, medial knee as well on the right side. The patient reports also some pain in the low back, which is worse with walking, standing, change in positions. The patient reports the pain is 8 on a scale of 10 at its worst, 5 on average and 3 at its least and is a 3 today. The patient reports it is aching, sharp, shooting, tingling, mostly with weightbearing and walking. He has noticed increased pain in the low back with walking as well. The patient reports no new motor or sensory deficits, no new bowel or bladder incontinence. Initially, he was doing much better with walking distances, doing household activities, traveling with greater ease and comfort, sleeping better at night, now is awakening him from sleep as noted. The patient reports no new motor or sensory deficits; however, no new bowel or bladder incontinence or other complaints. PHYSICAL EXAMINATION: VITAL SIGNS: The patient's blood pressure 132/82, pulse 85, respirations 18, temperature 98.5 degrees Fahrenheit, height is 5 feet 7 inches, weight is 180 pounds. GENERAL: The patient is awake, alert, oriented, appropriate, very pleasant demeanor. HEENT: Shows normocephalic, atraumatic. Extraocular movements are intact and symmetrical. Oral cavity: Mucous membranes moist and pink. Dentition is intact. NECK: Shows anterior throat supple without palpable lymphadenopathy noted. Swallow reflex symmetrical. CHEST: Shows normal on inspection. Breath sounds clear to auscultation bilaterally. HEART: Shows S1, S2 clear. No murmurs auscultated. ABDOMEN: Soft, nontender, nondistended. No palpable organomegaly is noted. No rebound or guarding demonstrated. BACK: Shows spine grossly in the midline. Normal appearing thoracic kyphosis and some moderate tenderness with palpation in the lumbar distribution bilaterally, but only diffusely without significant radiation. The patient has good rotational motion of lumbar spine as well as extension and flexion without difficulty. EXTREMITIES: Lower extremities show deep tendon reflexes 1+ in the patellar and tendo calcaneus tendons. Motor exam is strong with 5/5 dorsiflexion and extension. Peripheral pulses are 1+ posterior tibia. No peripheral edema is noted. Options were discussed with the patient. The patient's old chart was reviewed as his current medication regimen updated. Current review of systems updated today as well. We will proceed with a second in the series of lumbar transforaminal injection at right L2-L3 level using C-arm fluoroscopic guidance under sterile prep and drape. Risks were discussed including but not limited to bleeding, infection, possibility of epidural hematoma, subsequent neurologic compromise, dural puncture, headaches, spinal cord and/or nerve damage, potential injection of the vertebral artery at that level and permanent ischemic damage as well as poor results regarding pain control and exposure of fluoroscopy. The patient understands and wished to proceed. The patient will return to clinic in approximately 2 weeks for followup. He was counseled on return appointment, activity level and side effects to be aware of. DIAGNOSES: Lumbar radiculopathy with lumbar spinal stenosis, lumbar degenerative disk disease and post-lumbar laminectomy syndrome. PROCEDURE: Right L2-L3 transforaminal injections using C-arm fluoroscopic guidance under sterile prep and drape using local anesthetic. MEDICATION INJECTED: A total of 80 mg Depo-Medrol plus 2 mL of 0.25% bupivacaine and 1.5 mL of contrast with good spread medially into the epidural space as well as laterally along the nerve root at that level. No uptake was noted and no washout with digital subtraction. CONDITION AT DISCHARGE: Stable. The patient tolerated procedure well, had no complications. BERNARDO HUANG MD DR: SONIA/chidi JOB#: [id number] / [id number]
== END ==
LOC: PNCL 08:33
PROVIDERS: ATTEND Anesthesiology
DX: M51.16 Intervertebral disc disorders with radiculopathy, lumbar region (principal); M48.061 Spinal stenosis, lumbar region without neurogenic claudication; M96.1 Postlaminectomy syndrome, not elsewhere classified
CPT/HCPCS: 64483; J1040; J3490; Q9965; J1030

== ENCOUNTER → 2019-05-01 | Outpatient (CLI) | payer MEDICARE, BC ==
[~2019-05-01] MED LIST changes: -BUPIVACAINE MPF 0.25% 10 ML VIAL. ONE; +FLUO10CA14 PO; -FLUO10CA7 PO; -IOHEXOL 180 MG/ML 10 ML VIAL. ONE; +OMEP40CA45 PO; -OMEP40CA5 PO; -OXYB15TA PO; +OXYB15TA17 PO; +POTA20TA4 PO; -POTA20TA82 PO; +REGADENOSON 0.4 MG/5 ML DISP.SYRIN. IV ONE; -methylPREDNISolone ACETATE 40 MG/ML VIAL. ONE; -methylPREDNISolone ACETATE 80 MG/ML VIAL. ONE
--- NOTE | 2019-05-01 09:12 | CARD ---
MR#: [id number] Date of Study: 05/01/2019 Ordering Physician: HUSSEIN TEE, Referring Physician: HUSSEIN TEE, Tech: Mago Amaya APPROVED REPORT EXAM: Two-dimensional and M-mode echocardiogram with Doppler and color Doppler. Other Information Quality : AverageHR: 80bpm INDICATION Carotid artery stenosis RISK FACTORS Hypertension Hyperlipidemia 2D DIMENSIONS RVDd3.9 (2.9-3.5cm)Left Atrium(2D)2.9 (1.6-4.0cm) IVSd1.3 (0.7-1.1cm)Aortic Root(2D)3.3 (2.0-3.7cm) LVDd4.0 (3.9-5.9cm)LVOT Diameter2.1 (1.8-2.4cm) PWd1.1 (0.7-1.1cm)LVDs2.6 (2.5-4.0cm) FS (%) 36.0 %SV47.4 ml LVEF(%)66.1 (>50%) Aortic Valve AoV Peak Russ.170.6cm/sAoV VTI23.3cm AO Peak GR.11.6mmHgLVOT Peak Russ.115.2cm/s LVOT VTI 22.39cmAO Mean GR.5mmHg ZHANNA (VMAX)1.24df3NPU (VTI)3.41cm2 Mitral Valve MV E Updmpfej69.6cm/sMV DECEL YPCF255pv MV A Srigxgen760.5cm/sMV E Mean Gr.1mmHg MV OHP43zqM/A Ratio0.6 MVA (PHT)4.01cm2 TDI E/Lateral E'8.2E/Medial E'9.3 Pulmonary Valve PV Peak Sthrukqy93.3cm/sPV Peak Grad.2mmHg Tricuspid Valve TR P. Mnynxgbj518hu/sRAP KSBOPYIW5ytBl TR Peak Gr.36ozMzDADL96ayXj Pulmonary Vein S1 Mphnrsof31.7cm/sD2 Sdqjoanb02.7cm/s PVa cpnfiwvo668qpjw LEFT VENTRICLE The left ventricle is normal size. There is mild to moderate concentric left ventricular hypertrophy. The left ventricular systolic function is normal and the ejection fraction is within normal range. T he Ejection Fraction is 55-60%. Septal motion suggestive of conduction defect. Otherwise, grossly nor mal wall motion. Transmitral Doppler flow pattern is Grade I-abnormal relaxation pattern. RIGHT VENTRICLE The right ventricle is mildly to moderately dilated. The right ventricle is moderately hypertrophied. The right ventricular systolic function is normal. ATRIA The left atrium is mildly dilated. The right atrium is mildly dilated. The interatrial septum is inta ct with no evidence for an atrial septal defect or patent foramen ovale as noted on 2-D or Doppler im aging. AORTIC VALVE The aortic valve is moderate calcificed. It grossly appears trileaflet. Doppler and Color Flow reveal ed no significant aortic regurgitation. There is no significant aortic valvular stenosis. MITRAL VALVE The mitral valve is thickened but opens well. There is no evidence of mitral valve prolapse. There is no mitral valve stenosis. Doppler and Color-flow revealed trace mitral regurgitation. TRICUSPID VALVE The tricuspid valve is normal in structure and function. Doppler and Color Flow revealed trace to mil d tricuspid regurgitation with an estimated PAP of 55 mmHg. There is no tricuspid valve stenosis. PULMONIC VALVE The pulmonic valve is not well visualized. Doppler and Color Flow revealed no pulmonic valvular regur gitation. There is no pulmonic valvular stenosis. GREAT VESSELS The aortic root is normal in size. The IVC is normal in size and collapses >50% with inspiration. PERICARDIAL EFFUSION There is no evidence of significant pericardial effusion. Critical Notification Critical Value: No <Conclusion> The left ventricular systolic function is normal and the ejection fraction is within normal range. Th e Ejection Fraction is 55-60%. Septal motion suggestive of conduction defect. Otherwise, grossly normal wall motion. Doppler and Color Flow revealed trace to mild tricuspid regurgitation with an estimated PAP of 55 mmH g. Signed by : Luke Huang, Electronically Approved : 05/01/2019 09:11:37
--- NOTE | 2019-05-01 11:55 | RAD ---
MR#: [id number] Date of Study: 05/01/2019 Ordering Physician: HUSSEIN TEE, Referring Physician: HUSSEIN TEE, Tech: Mago Leavitt RDMS, EVELYN, RTR APPROVED REPORT Patient Location: OUT-PATIENT Laterality:Bilateral Indications Carotis Stenosis; Leg Tingling; Right Endarterectomy 1999; HTN Risk Factors Hypertension: Surgery/Intervention Endarterectomy: right Doppler Spectral Velocity Analysis Right Left pCCA pCCA 109/29 cm/s mCCA mCCA 76/17 cm/s dCCA dCCA 86/24 cm/s ECA 36/14 cm/sECA 120/20 cm/s pICA pICA 224/68 cm/s Denzel Denzel 114/46 cm/s dICA dICA 160/51 cm/s Vert. 69/29 cm/sVert. 64/22 cm/s ICA/CCA ICA/CCA 2.96 Findings The right common carotid artery and internal carotid artery are occluded. There is extensive plaque t hroughout these vessels on garcia scale images. No evidence of color Doppler flow is noted. The right external carotid artery and vertebral artery are patent. Normal antegrade velocities are no karmen in the vertebral artery. In the left common carotid artery there is likely a 50-69% stenosis based on velocity criteria althou gh the grayscale images suggest greater than 70% stenosis. ICA to CCA ratios are elevated at 2.9. The vertebral velocities are also antegrade on the left. Normal external carotid velocities are noted. Critical Notification Critical Value: No <Conclusion> 1. 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 Probable at least moderate 50-70% stenosis involving the left internal carotid artery. 3. Antegrade vertebral velocities bilaterally. Signed by : Luke Huang, Electronically Approved : 05/01/2019 11:54:55
--- NOTE | 2019-05-01 13:23 | RAD ---
MR#: [id number] Date of Study: 05/01/2019 Ordering Physician: HUSSEIN TEE Referring Physician: JIL TUCKER Tech: DERIK Santamaria APPROVED REPORT Test Type: Pharmacological Stress Nurse/Tech: Shannon Wilhelm R.N. Test Indications: carotid artery stenosis Cardiac History: htn,smoker, Medications: See Electronic Medical Record Medical History: See Electronic Medical Record Resting ECG: SR with RBBB Resting Heart Rate: 76 bpm Resting Blood Pressure: 116/69mmHg Pretest Chest Pain: No chest pain Nurse/Tech Notes S1S2, lungs CTA Consent: The procedure was explained to the patient in lay terms. Informed consent was witnessed. Alan eout was entered into [facility]. History and Stress Test performed by RT Tawanda (R) (N) Pharm. Details Pharmacologic stress testing was performed using 0.4mg per 5ml of regadenoson given intravenously ove r 7-10 seconds. Stress Symptoms No chest pain or symptoms. POST EXERCISE Reason for Termination: Infusion complete Max HR: 109 bpm Max Blood Pressure: 110/60mmHg Blood Pressure response to exercise: Normal blood pressure response during stress. Heart Rate response to exercise: wnl Chest Pain: No. Arrhythmia: Yes. pac's noted ST Change: No. no change from abnormal baseline INTERPRETATION Stress EKG Conclusion: Baseline EKG showed sinus rhythm with RBBB. Non-diagnostic changes at peak st ress. No arrhythmias. Imaging Protocol IMAGE PROTOCOL: Rest Tc-99m/stress Tc-99m 1 day Rest: Stress: Viability: Radiopharm.Tc99m NpuafkyfeEy31g Sestamibi Llbi96hXq 34mCi Duration 15min. 10min. Img Date 05/01/2019 05/01/2019 Inj-Img Wjib45mip. 60min. Rest Admin Site:IV - Left AntecubitalAdministrator:RT Tawanda (Clifford)(N) Stress Admin Site: IV - Left AntecubitalAdministrator: RT Tawanda (R)(N) STRESS DATA End Diast. Vol.113.0mlAv. Heart Rate81.0bpm End Syst. Vol.30.0mlCO Index BSA0.0L/min Myocardial Yymt630.0gEject. Rdgqxuka61.0% Stress Rates Pk. Fill Rate2.71EDV/secLVtime Pk. Fill 199.58msec Pk. Empty Rate3.87ESV/secLVtime Pk. Xlmvq706.93msec 1/3 Pk. Fill1.34EDV/sec Stress Scores Regional WT0.00Summed WT4.00 Regional WM0.00Summed WM0.00 LV Perfusion Scintigraphic images showed fixed inferior wall defect most probably diaphragmatic attenuation artifa ct based on normal regional wall motion Wall Motion Normal left ventricle systolic function with ejection fraction calculated at 73% LV Perf. Quant 17 Seg. SSS4.00 17 Seg. SRS3.00 17 Seg. SDS1.00 Stress Defect Extent (% LAD)3.80Rest Defect Extent (% LAD)0.00Rev. Defect Extent (% LAD)3.80 Stress Defect Extent (% LCX) 0.00Rest Defect Extent (% LCX)0.00Rev. Defect Extent (% LCX)0.00 Stress Defect Extent (% RCA)14.40Rest Defect Extent (% RCA)0.00Rev. Defect Extent (% RCA)0.00 Stress Defect Extent (% FERNANDO)8.00Rest Defect Extent (% FERNANDO)1.50Rev. Defect Extent (% FERNANDO)1.30 Conclusion 1. Regadenoson cardioisotope stress test showed diaphragmatic attenuation artifact without any eviden ce of ischemia or infarct. 2. Normal left ventricular systolic function with ejection fraction calculated at 73%. 3. Low risk for cardiac events. Signed by : Hussein Tee, Electronically Approved : 05/01/2019 13:22:26
== END | disposition home or self-care (01) ==
LOC: ECHO 07:40
PROVIDERS: ATTEND Internal Medicine Cardiovascular Disease
DX: I65.21 Occlusion and stenosis of right carotid artery (principal); I45.10 Unspecified right bundle-branch block; I07.1 Rheumatic tricuspid insufficiency; I11.9 Hypertensive heart disease without heart failure; I25.10 Atherosclerotic heart disease of native coronary artery without angina pectoris; Z87.891 Personal history of nicotine dependence
CPT/HCPCS: 78452; 93017; 93306; 93880; A9500; J2785

== ENCOUNTER → 2020-06-10 | Outpatient (CLI) | payer MEDICARE, BC ==
[~2020-06-10] MED LIST changes: +AMLO-186 PO; -AMLO5TAB10 PO; -FLUO10CA14 PO; +FLUO10CA15 PO; -OXYB15TA17 PO; +OXYB15TA18 PO; -REGADENOSON 0.4 MG/5 ML DISP.SYRIN. IV ONE
--- NOTE | 2020-06-10 16:39 | CARD ---
MR#: [id number] Date of Study: 06/10/2020 Ordering Physician: HUSSEIN TEE, Referring Physician: HUSSEIN TEE Tech: Odalis Hopper RDCS APPROVED REPORT EXAM: Two-dimensional and M-mode echocardiogram with Doppler and color Doppler. Other Information Quality : Good INDICATION Hypertension/HCVD RISK FACTORS Smoking 2D DIMENSIONS RVDd4.8 (2.9-3.5cm)Left Atrium(2D)3.0 (1.6-4.0cm) IVSd1.4 (0.7-1.1cm)Aortic Root(2D)3.2 (2.0-3.7cm) LVDd4.1 (3.9-5.9cm)LVOT Diameter2.0 (1.8-2.4cm) PWd1.3 (0.7-1.1cm)LVDs2.4 (2.5-4.0cm) FS (%) 30.0 %SV52.8 ml LVEF(%)60.0 (>50%) Aortic Valve AoV Peak Russ.153.8cm/sAoV VTI23.8cm AO Peak GR.9.5mmHgLVOT Peak Russ.110.4cm/s AO Mean GR.5mmHgAVA (VMAX)2.16cm2 ZHANNA (VTI)2.20cm2 Mitral Valve MV E Kfktmgbt41.7cm/sMV DECEL INTJ964uw MV A Hwtoxjtb56.1cm/sE/A Ratio0.7 Tricuspid Valve TR P. Rpbctilu833tk/sRAP UIOORZEX7kpGl TR Peak Gr.12chFxNYTF94rfYl Pulmonary Vein S1 Khonanqx38.8cm/sD2 Qaipdlxg44.1cm/s LEFT VENTRICLE The left ventricle is normal size. There is mild concentric left ventricular hypertrophy. The left ve ntricular systolic function is normal. The Ejection Fraction is 60-65%. There is a flattened septum c onsistent with right ventricle volume and pressure overload. Transmitral Doppler flow pattern is Grad e I-abnormal relaxation pattern. RIGHT VENTRICLE The right ventricle is moderately dilated. Systolic function is mildly reduced. ATRIA The left atrium size is normal. The right atrium is mildly dilated. The interatrial septum is intact with no evidence for an atrial septal defect or patent foramen ovale as noted on 2-D or Doppler imagi ng. AORTIC VALVE The aortic valve is calcified but opens well. Doppler and Color Flow revealed no significant aortic r egurgitation. There is no significant aortic valvular stenosis. MITRAL VALVE The mitral valve is calcified but opens well. Mitral annular calcification is mild. There is no evide nce of mitral valve prolapse. There is no mitral valve stenosis. Doppler and Color Flow revealed no m itral valve regurgitation noted. TRICUSPID VALVE The tricuspid valve is normal in structure and function. Doppler and Color Flow revealed mild tricusp id regurgitation. There is moderate pulmonary hypertension. The PA pressure was estimated at 56 mmHg. There is no tricuspid valve stenosis. PULMONIC VALVE The pulmonic valve is not well visualized. Doppler and Color Flow revealed trace pulmonic valvular re gurgitation. There is no pulmonic valvular stenosis. GREAT VESSELS The aortic root is normal in size. The ascending aorta is not well seen. The IVC is normal in size an d collapses >50% with inspiration. PERICARDIAL EFFUSION There is no evidence of significant pericardial effusion. Critical Notification Critical Value: No <Conclusion> The left ventricular systolic function is normal. The Ejection Fraction is 60-65%. There is a flattened septum consistent with right ventricle volume and pressure overload. Transmitral Doppler flow pattern is Grade I-abnormal relaxation pattern. The right ventricle is moderately dilated. Mild tricuspid regurgitation. There is moderate pulmonary hypertension. The PA pressure was estimated at 56 mmHg. There is no evidence of significant pericardial effusion. Signed by : Hussein Tee, Electronically Approved : 06/10/2020 16:38:48
== END ==
LOC: ECHO 10:45
PROVIDERS: ATTEND Internal Medicine Cardiovascular Disease
DX: I08.3 Combined rheumatic disorders of mitral, aortic and tricuspid valves (principal); I10 Essential (primary) hypertension
CPT/HCPCS: 93306